=== PATIENT | male | born 1960 | race Caucasian/White ===

== ENCOUNTER 2022-05-31 14:38 | Inpatient (IN) | payer OTHER ==
[2022-05-31] MEDS ORDERED: ASPIRIN 300 MG SUPP RECTAL STA (14:43)
[2022-05-31] MEDS ORDERED: HEPARIN SODIUM 1,000 UN/ML (10ML VL) IV ONE ×2 (14:47→15:15)
--- NOTE | 2022-05-31 14:47 | ED ---
General Adult HPI - General Stated complaint: cardiac arrest Time Seen by Provider: 05/31/22 14:38 Source: patient, EMS, RN notes reviewed, old records reviewed - History of Present Illness Initial comments: This is a 61-year-old male who is brought into the emergency department by EMS. According to EMS the patient was showering and didn't feel well laid on the bed and then he stopped breathing and the can feel her heartbeat so she started CPR. EMS arrived the patient was in asystole initially they started CPR gave the patient epi patient went into V. tach at some point in time they did 2 shocks and gave 150 of amiodarone. Patient was intubated in the field. When patient arrived patient was breathing on his own and we were assisting ventilations with the back. Review of Systems ROS Statement: Those systems with pertinent positive or pertinent negative responses have been documented in the HPI. ROS Other: All systems not noted in ROS Statement are negative. General Exam - General Exam Comments Initial Comments: GENERAL: Patient is well-developed and well-nourished. Patient is not alert but isn't breathing on his own ENT: Neck is soft and supple. No significant lymphadenopathy is noted. Oropharynx is clear. Moist mucous membranes. Neck has full range of motion without eliciting any pain. EYES: The sclera were anicteric and conjunctiva were pink and moist. Extraocular movements were intact and pupils were equal round and reactive to light. Eyelids were unremarkable. PULMONARY: Unlabored respirations. Good breath sounds bilaterally. No audible rales rhonchi or wheezing was noted. CARDIOVASCULAR: There is a regular rate and rhythm without any murmurs gallops or rubs. Femoral pulses are equal bilaterally ABDOMEN: Soft and nontender with normal bowel sounds. SKIN: Skin is clear with no lesions or rashes and otherwise unremarkable. NEUROLOGIC: Patient is not alert or awake. MUSCULOSKELETAL: Patient is not moving any extremities and his in no condition to follow commands. LYMPHATICS: No significant lymphadenopathy is noted PSYCHIATRIC: Unable to assess Medical Decision Making - Medical Decision Making Chest x-ray was interpreted by me. Patient's chest x-ray shows ET tube in good placement. There are no other acute findings at this time. EKG was interpreted by me. First EKG showed sinus rhythm at [address] segment elevation in precordial leads V5 and V6 and possibly in lead 3 but there is too much noise to do fine definitively. Patient is ST segment depression in leads V1 and V2 and V3. Patient's heart rate was 90 bpm IN interval is 181 QRSs 100 QT interval 370 QTC is 426. Patient's second EKG done try to limit some of the noise and I did interpret this EKG as well. EKG shows sinus rhythm at 85 bpm IN interval 177 QRSs 101 Q-T intervals 370 QTC is 412. Patient's EKG shows ST segment elevation inferiorly and ST segment elevation in V1 [address] segment depression V1 and V2 and V3. I spoke with Dr. lowery and . she agreed to admit the patient. This was called a STEMI overhead. Spoke with Dr. Perez he wanted the patient up to the catheterization lab as soon as possible. Critical Care Time Critical Care Time: Yes Total Critical Care Time: 35 Disposition Clinical Impression: STEMI (ST elevation myocardial infarction) Disposition: ADMITTED IP TO THIS HOSP Referrals: None,Stated [Primary Care Provider] - 1-2 days Time of Disposition: 14:55
--- NOTE | 2022-05-31 15:00 | XR ---
EXAMINATION TYPE: XR chest 1V portable DATE OF EXAM: 05/31/2022 COMPARISON: NONE HISTORY: Chest pain TECHNIQUE: Single frontal view of the chest is obtained. FINDINGS: ET tube 4.3 cm above sivakumar. Coarsened interstitium. No evidence of pneumothorax. There is small bilateral pleural effusions. Underlying COPD and cardiomegaly noted. IMPRESSION: 1. ET tube in good position. Right perihilar infiltrate in the differential diagnosis. 2. Small bilateral pleural effusions and underlying COPD.
[2022-05-31] MEDS ORDERED: LIDOCAINE 1% INJ 10MG/ML (30 ML VIAL-PF) SQ ONE (15:07)
[2022-05-31] MEDS ORDERED: ASPIRIN 325 MG TAB OG-TUBE ONE (15:15)
[2022-05-31] MEDS ORDERED: ASPIRIN 325 MG TAB PO ONE (15:15)
[2022-05-31] MEDS ORDERED: TIROFIBAN 12.5MG-250ML NS 250 ML IV ONE (15:18)
[2022-05-31] MEDS ORDERED: NOREPINEPHRINE 4 MG in SODIUM CHLORIDE 0.9% 250 ML IV ONE (15:18)
[2022-05-31] MEDS ORDERED: TIROFIBAN BOLUS 12.5MG/250 ML BAG IV ONE (15:18)
[2022-05-31] MEDS ORDERED: IV FLUID CONTINUATION 1,000 ML IV ONE (15:21)
[2022-05-31] MEDS ORDERED: MIDAZOLAM 2 MG/2 ML VIAL IV ONE (15:26)
[2022-05-31] MEDS ORDERED: IOPAMIDOL-370 100ML BTL INJ ONE ×2 (15:28→15:36)
[2022-05-31] MEDS ORDERED: TICAGRELOR 90 MG TAB ONE (15:33)
[2022-05-31] MEDS ORDERED: TICAGRELOR 90 MG TAB OG-TUBE ONE (15:35)
[2022-05-31] MEDS ORDERED: fentaNYL (PF) 50 MCG/ML 2 ML AMP ONE (15:42)
[2022-05-31 15:43] LABS: Basophils # (A) 0.1 k/uL (0-0.2); Basophils % (A) 1 %; Eosinophils # (A) 0.3 k/uL (0-0.7); Eosinophils % (A) 2 %; HCT 46.6 % (39.0-53.0); HGB 15.5 gm/dL (13.0-17.5); Lymphocytes # (A) 3.8 k/uL (1.0-4.8); Lymphocytes % (A) 31 %; MCH 30.1 pg (25.0-35.0); MCHC 33.2 g/dL (31.0-37.0); MCV 90.4 fL (80.0-100.0); Mean Platelet Volume 7.8; Monocytes # (A) 0.7 k/uL (0-1.0); Monocytes % (A) 6 %; Neutrophils % (A) 58 %; Platelet Count 302 k/uL (150-450); RBC 5.15 m/uL (4.30-5.90); RDW 12.9 % (11.5-15.5); WBC 12.1 k/uL (3.8-10.6)
[2022-05-31] MEDS ORDERED: fentaNYL (PF) 50 MCG/ML 2 ML AMP IV ONE (15:44)
[2022-05-31] MEDS ORDERED: ATROPINE SULFATE 0.1 MG/ML 10ML SYRINGE IV PRN (15:45)
[2022-05-31] MEDS ORDERED: MAG HYDROX/AL HYDROX/SIMETH 30 ML CUP PO PRN (15:45)
[2022-05-31] MEDS ORDERED: RX INFO: IV CONTRAST WAS GIVEN 1 EACH MISC MISCELLANE PRN (15:45)
[2022-05-31] MEDS ORDERED: NITROGLYCERIN SL TABS 0.4 MG TAB SUBLINGUAL PRN (15:45)
[2022-05-31 15:53] LABS: Albumin 4.3 g/dL (3.5-5.0); Calcium 8.8 mg/dL (8.4-10.2); Total Protein 6.9 g/dL (6.3-8.2)
[2022-05-31 15:56] LABS: Magnesium 2.1 mg/dL (1.6-2.3)
[2022-05-31] MEDS ORDERED: TIROFIBAN 12.5MG-250ML NS 250 ML IV SCH (16:00)
[2022-05-31 16:01] LABS: Partial Thromboplastin Time 21.8 sec (22.0-30.0); Prothrombin Time 10.8 sec (9.0-12.0)
[2022-05-31] MEDS: SODIUM CHLORIDE 0.9% 1,000 ML IV SCH (16:10)
--- NOTE | 2022-05-31 16:22 | P.CRDCN ---
History of Present Illness History of present illness: - . HPI: [This is a 61-year-old patient was brought to the emergency room by EMS. History was obtained after they did the interventional procedure from the and daughter. Apparently they were moving from one house to another and he did some physical work he took a shower came out and said he didn't feel well had some chest and bilateral shoulder discomfort. Then he laid down and then started talking and stopped talking and became unresponsive started CPR was not performed in his mouth. She called 911. EMS arrived within about 10 minutes or less and patient was in V. tach and they did 2 shocks gave him 150 mg of amiodarone he was intubated and brought into the emergency room. I saw the patient in the vp lab as a prepping him. I could not find any family so I did not speak to them. However the history I obtained suggested that he was healthy does not smoke has family history of premature CAD. He has no hypertension or diabetes does not take any prescription medications. This seems to be the first episode although he had symptoms earlier he did not share with his . In the emergency room he was evaluated and sent to the cardiac vp lab. In the vp lab patient was on event his blood pressure was about 110 systolic. He was also sedated. I bent knee mediately performed the procedure. Physical examination however revealed blood pressure was about 110/70 there was no JVD S1 and S2 were heard normally but distantly lungs revealed ventilatory assisted breath sounds. Abdomen was soft lower extremity pulses are diminished. I did not perform a central nervous system examination. EKG revealed very subtle inferior ST elevation initial EKG revealed precordial ST depression in V5 and V6 had ST elevation. EKG suggested possible circumflex occlusion. This was called a STEMI and patient was brought to the Career Development Facilitator expeditiously RELEVANT PAST MEDICAL HISTORY: No significant past medical history no medications.. MEDICATIONS: No prescription medicines takes aspirin and vitamins ALLERGIES: . REVIEW OF SYSTEMS: . PHYSICIAL EXAM: . IMPRESSION: 1. Acute inferior ST elevation ND with cardiac arrest, 2 shocks and CPR. Sudden secondary to possible acute inferior ST elevation ND. 2. . 3. . 4. . 5. . RECOMMENDATIONS: Amiodarone bolus was given intravenously. We will proceed with urgent cardiac cath and PCI if indicated. Past Medical History Past Medical History: Unable to Obtain History of Any Multi-Drug Resistant Organisms: Unobtainable Past Surgical History: Unable to Obtain Past Psychological History: Unable to Obtain Smoking Status: Unknown if ever smoked Past Alcohol Use History: Unable to Obtain Past Drug Use History: Unable to Obtain Medications and Allergies Allergies Allergy/AdvReac Type Severity Reaction Status Date / Time Unable to Assess Allergy Verified 05/31/22 14:50 Physical Exam Vitals: Vital Signs Pulse Resp BP Pulse Ox FiO2 05/31/22 16:08 100 05/31/22 16:03 100 05/31/22 14:42 89 22 126/92 92 L Intake and Output 05/31/22 05/31/22 05/31/22 06:59 14:59 22:59 Intake Total 240 Balance 240 Intake: IV 240 Other: Weight 97.522 kg Results 05/31/22 15:08 05/31/22 15:08 Cardiac Enzymes 05/31/22 05/31/22 Range/Units 15:08 15:08 AST 277 H (17-59) U/L Troponin I <0.012 (0.000-0.034) ng/mL Coagulation 05/31/22 Range/Units 15:08 PT 10.8 (9.0-12.0) sec APTT 21.8 L (22.0-30.0) sec CBC 05/31/22 Range/Units 15:08 WBC 12.1 H (3.8-10.6) k/uL RBC 5.15 (4.30-5.90) m/uL Hgb 15.5 (13.0-17.5) gm/dL Hct 46.6 (39.0-53.0) % Plt Count 302 (150-450) k/uL Comprehensive Metabolic Panel 05/31/22 Range/Units 15:08 Sodium 137 (137-145) mmol/L Potassium 4.0 (3.5-5.1) mmol/L Chloride 103 (98-107) mmol/L Carbon Dioxide 19 L (22-30) mmol/L BUN 21 H (9-20) mg/dL Creatinine 1.18 (0.66-1.25) mg/dL Glucose 212 H (74-99) mg/dL Calcium 8.8 (8.4-10.2) mg/dL AST 277 H (17-59) U/L ALT 177 H (4-49) U/L Alkaline Phosphatase 71 (38-126) U/L Total Protein 6.9 (6.3-8.2) g/dL Albumin 4.3 (3.5-5.0) g/dL Current Medications Generic Name Dose Route Start Last Admin Trade Name Freq PRN Reason Stop Dose Admin Al Hydroxide/Mg Hydroxide 30 ml 05/31/22 15:45 Mag Hydrox/Al Hydrox/Simeth 30 Ml Cup PO Q4HR PRN Heartburn Aspirin 81 mg 06/01/22 09:00 Aspirin 81 Mg PO DAILY SAE Atorvastatin Calcium 80 mg 05/31/22 21:00 Atorvastatin 80 Mg Tab PO HS SAE Atropine Sulfate 0.5 mg 05/31/22 15:45 Atropine Sulfate 0.1 Mg/Ml 10ml Syringe IV ONCE PRN Symptomatic Bradycardia Chlorhexidine Gluconate 15 ml 05/31/22 21:00 Chlorhexidine Gluconate 15 Ml Cup MUCOUS MEM BID SAE Sodium Chloride 1,000 ml/ IV 1,000 mls @ 100 mls/hr 05/31/22 15:45 Solution IV 06/01/22 09:46 .Q10H SAE Tirofiban/Sodium Chloride 250 mls @ 17.554 mls/hr 05/31/22 16:00 Aggrastat 12.5 Mg/250 Ml Ns IV 06/01/22 04:00 .[id number] SAE 0.15 MCG/KG/MIN Norepinephrine Bitartrate 4 mg 254 mls @ 11.147 mls/hr 05/31/22 16:00 / Sodium Chloride IV .[id number] SAE Protocol 0.03 MCG/KG/MIN Sodium Chloride 1,000 mls @ 50 mls/hr 06/01/22 04:00 Saline 0.9% IV .Q20H SAE Sodium Chloride 1,000 mls @ 100 mls/hr 05/31/22 16:00 Saline 0.9% IV 06/01/22 04:00 .Q10H SAE Propofol 1,000 mg/ IV Solution 100 mls @ 8.777 mls/hr 05/31/22 16:15 IV .[id number] SAE Protocol 15 MCG/KG/MIN Miscellaneous Information 1 each 05/31/22 15:45 Rx Info: Iv Contrast Was Given 1 Each Misc MISCELLANE 06/02/22 15:45 DAILY PRN Per Protocol Nitroglycerin 0.4 mg 05/31/22 15:45 Nitroglycerin Sl Tabs 0.4 Mg Tab SUBLINGUAL Q5M PRN Chest Pain Ticagrelor 90 mg 05/31/22 21:00 Ticagrelor 90 Mg Tab PO BID SAE Protocol Intake and Output 05/31/22 05/31/22 05/31/22 06:59 14:59 22:59 Intake Total 240 Balance 240 Intake: IV 240 Other: Weight 97.522 kg Patient Weight 06/01/22 06:59 Weight 97.522 kg 05/31/22 15:08 05/31/22 15:08
[2022-05-31] MEDS: NOREPINEPHRINE 4 MG in SODIUM CHLORIDE 0.9% 250 ML IV SCH (16:30)
[2022-05-31 16:36] LABS: Glucose,Whole Blood 175 mg/dL (70-110)
--- NOTE | 2022-05-31 16:40 | P.CARDCATH ---
Description of Procedure: #1 left heart catheterization and coronary angiography. #2 PTCA and stenting of mid circumflex with a drug-eluting stent in the setting of acute inferior ST elevation AK Moderate conscious sedation time was 35 minutes. Patient was already sedated. Additional fentanyl was given. Oxygen saturation hemodynamics and EKG were monitored closely. This patient was brought by the EMS following what appears to be a cardiac arrest at home CPR by and downtime of about 10-12 minutes. Patient was intubated in the field and brought in EKG suggested inferior ST elevation AK with some precordial ST depression suggestive of circumflex lesion. He was brought to the cardiac Housekeeper Nanny expeditiously. I started the procedure as soon as possible from right femoral approach I did not communicate with any family members since and none were available Procedure Details: . Patient was brought to the field laborer. Patient was prepped and draped in the usual manner. Under strict aseptic precautions and local anesthesia a 6 Italian introducer was placed in the right femoral artery. Using a JL 4.0 guide catheter I started off and noted that there was a total circumflex occlusion I performed intervention of the circumflex and then used a right Blanche diagnostic catheter and did selective coronary angiography of the right coronary artery. I used the same right catheter to check LV pressures but did not do an LV gram. Following the procedure the sheath was sutured and patient was sent to the ICU. Findings: Hemodynamics: The left ventricle end-diastolic pressure was 24 mmHg without any gradient across aortic valve. Left Main: Short patent disease-free vessel that bifurcates into LAD and nondominant circumflex LAD: This is a fair distribution vessel and gives off a large diagonal branch very proximally that again divides into 2 branches superior branch has a 50-60% lesion inferior branch has about a 40% lesion. The LAD itself is free of significant disease and runs all the way to the apex of her giving off another diagonal branch in the midportion. After the diagonal branch the LAD is somewhat smaller in caliber. There is a good septal branch also that comes off. CIRC: Nondominant vessel gives off 2 tiny obtuse minor branches and then a left atrial circumflex branch then the vessel is then totally occluded without antegrade flow there seems to be moderate amount of thrombus RCA: Dominant vessel large in caliber and distribution minor irregularities study bifurcates into a large PDA and PLV, the PLV in the midportion has about a 40% narrowing PLV is a large distribution vessel. PDA has minor irregularities no significant disease LV: LV gram was not performed Closure Device: The sheath was sutured no closure device Complications: No complication PCI procedure details: I used a left standard Blanche guide catheter of 6-Italian caliber and run through wire. I opened the totally occluded vessel with a 2.5 caliber 15 mm trek balloon. I then deployed a 2.75 caliber Xience stent of 15 mm length. Excellent angiographic result was achieved. Patient received 180 mg of we will into through the orogastric tube. He also received intravenous heparin a total of 6500 units and also Aggrastat bolus and drip. ACT was about 260. Excellent angiographic result without complication was achieved Estimated Blood Loss: Minimal Impression: Right dominant system no significant disease in the RCA. Mild to moderate disease in the LAD. Total occlusion of circumflex. Elevated filling pressures no gradient Pre Procedure Diagnosis: Acute ST elevation AK involving inferior wall with possible circumflex occlusion Final Post Procedure Diagnosis: Acute inferior ST elevation AK with circumflex 100% occlusion Recommendation: Urgent PCI of circumflex that was performed expeditiously with reperfusion achieved in 40 minutes Complications: None; patient tolerated the procedure well. Disposition: ICU on a norepinephrine drip and on a ventilator. Discussed with Dr. Monroe hearing specialist and also talk to the ICU nurse and gave the report. Condition: Unstable and critical going to ICU on norepinephrine drip and on a ventilator Discharge Disposition: Patient is critical he is going to the ICU
[2022-05-31 16:45] LABS: ABG Base Excess -5.9 mmol/L; ABG HCO3 20 mmol/L (21-25); ABG Oxygen Saturation 99.2 % (94-97); ABG PCO2 40 mmHg (35-45); ABG PH 7.31 (7.35-7.45); ABG PO2 160 mmHg (83-108); ABG TCO2 22 mmol/L (19-24); Allen Test Performed? Yes
[2022-05-31] MEDS: SODIUM CHLORIDE 0.9% 1,000 ML in EMPTY BAG 1 BAG IV SCH ×2 (16:59→18:34)
[2022-05-31 17:22] LABS: Appearance,Urine Clear (Clear); Bilirubin,Urine Negative (Negative); Blood,Urine Small (Negative); Color,Urine Yellow; Glucose,Urine (UA) 1+ (Negative); Ketones,Urine 1+ (Negative); Leukocyte Esterase,Urine Negative (Negative); Mucus,Urine Rare /hpf; Nitrite,Urine Negative (Negative); PH, Urine 5.5 (5.0-8.0); Protein,Urine 1+ (Negative); RBC,Urine 14 /hpf (0-5); Urobilinogen,Urine <2.0 mg/dL (<2.0)
[2022-05-31 17:23] LABS: Amphetamine Screen,Urine Not Detected (NotDetected); Barbiturate Screen,Urine Not Detected (NotDetected); Benzodiazepines Screen,Urine Not Detected (NotDetected); Cocaine Screen,Urine Not Detected (NotDetected); Methadone Screen, Urine Not Detected (NotDetected); Opiate Screen,Urine Not Detected (NotDetected); Oxycodone Screen, Urine Not Detected (NotDetected); Phencyclidine Screen,Urine Not Detected (NotDetected); Tricyclic Antidepressant,Urine Not Detected (NotDetected); Urn Cannabinoid Scrn Not Detected (NotDetected)
[2022-05-31 17:24] LABS: Specific Gravity,Urine >1.050 (1.001-1.035)
--- NOTE | 2022-05-31 17:42 | XR ---
EXAMINATION TYPE: XR cervical spine 1V DATE OF EXAM: 05/31/2022 5:32 PM INDICATION: Patient age:Male; 61 years old; Reason for study: r/o cervical fracture; COMPARISON: None TECHNIQUE: The cervical spine was imaged in lateral view only. FINDINGS: Limited evaluation secondary to overlapping soft tissues. The osseous structures show normal alignment without evidence of an acute fracture. There are osteoph ytes noted throughout the cervical spine on the anterior aspects of the vertebral bodies. The visuali zed intervertebral disk spaces and straight mild disc space loss. Endotracheal nasogastric tubes are present. IMPRESSION: 1. Limited evaluation without obvious fracture or dislocation. Consider CT for better evaluation. 2. Mild degenerative disc disease changes of the cervical spine.
[2022-05-31 17:47] LABS: Glucose,Whole Blood 167 mg/dL (70-110)
--- NOTE | 2022-05-31 18:04 | CA ---
Transthoracic Echo Report Name: Ted Nathan Age: 61 Gender: M : 1960 Exam Date: 05/31/2022 15:41 Exam Location: [facility] Ht (in): 72 Wt (lb): 215 Ordering Physician: Merissa Perez MD ([id number]) Attending/Referring Phys: Systems Security Analyst Genevieve Kuhn RDCS Procedure CPT: Indications: stemi Cardiac Hx: Technical Quality: Fair Contrast 1: Total Dose (mL): 87 Contrast 2: Total Dose (mL): MEASUREMENTS (Male / Female) Normal Values 2D ECHO LV Diastolic Diameter PLAX 4.6 cm 4.2 - 5.9 / 3.9 - 5.3 cm LV Systolic Diameter PLAX 3.3 cm IVS Diastolic Thickness 1.4 cm 0.6 - 1.0 / 0.6 - 0.9 cm LVPW Diastolic Thickness 1.3 cm 0.6 - 1.0 / 0.6 - 0.9 cm LV Relative Wall Thickness 0.6 RV Internal Dim ED PLAX 2.8 cm LA Volume 80.2 cm??? 18 - 58 / 22 - 52 cm??? M-MODE Aortic Root Diameter MM 3.3 cm LA Systolic Diameter MM 4.0 cm LA Ao Ratio MM 1.2 AV Cusp Separation MM 2.2 cm DOPPLER AV Peak Velocity 113.7 cm/s AV Peak Gradient 5.2 mmHg LVOT Peak Velocity 91.3 cm/s LVOT Peak Gradient 3.3 mmHg MV Area PHT 4.9 cm??? Mitral E Point Velocity 99.2 cm/s Mitral A Point Velocity 59.7 cm/s Mitral E to A Ratio 1.7 MV Deceleration Time 155.3 ms MV E' Velocity 9.3 cm/s Mitral E to MV E' Ratio 10.7 TR Peak Velocity 297.7 cm/s TR Peak Gradient 35.4 mmHg Right Ventricular Systolic Press 40.3 mmHg FINDINGS Left Ventricle Moderately increased left ventricular wall thickness. No obvious regional wall motion abnormalities. Left ventricular ejection fraction is estimated at 50-55 %. Right Ventricle Normal right ventricular size and function. Mild pulmonary hypertension. Right Atrium Normal right atrial size. Left Atrium Severely increased left atrial volume. Mitral Valve Structurally normal mitral valve. Mild mitral regurgitation. Aortic Valve No aortic valve stenosis or regurgitation. Tricuspid Valve Mild tricuspid regurgitation.structurally normal tricuspid valve. Pulmonic Valve Structurally normal pulmonic valve. Pericardium No pericardial effusion. Aorta Normal size aortic root and proximal ascending aorta. CONCLUSIONS 1. Normal left ventricle size and borderline systolic function with mild lateral wall hypokinesis 2. Mild mitral and tricuspid regurgitation Previewed by: Dr. Sunday Shook MD (Electronically Signed) Final Date: 31 May 2022 18:02
[2022-05-31] MEDS ORDERED: DEXTROSE 50% SYRINGE 50 ML IVP PRN ×2 (18:12)
[2022-05-31] MEDS: INSULIN ASPART (NovoLOG) 100 UNIT/ML VIAL SQ SCH (19:32)
[2022-05-31] MEDS: CHLORHEXIDINE GLUCONATE 15 ML CUP MUCOUS MEM SCH (22:12)
[2022-05-31] MEDS: TICAGRELOR 90 MG TAB PO SCH (22:12)
[2022-05-31] MEDS: ATORVASTATIN 80 MG TAB PO SCH (22:12)
[2022-06-01 00:10] LABS: Glucose,Whole Blood 110 mg/dL (70-110)
[2022-06-01] MEDS: INSULIN ASPART (NovoLOG) 100 UNIT/ML VIAL SQ SCH ×5 (00:11→23:49)
[2022-06-01 00:42] LABS: Magnesium 2.1 mg/dL (1.6-2.3); Potassium 3.7 mmol/L (3.5-5.1)
[2022-06-01] MEDS ORDERED: POTASSIUM BICARBONATE/CIT AC 20 MEQ TABLET.EFF NG-TUBE SCH (01:00)
[2022-06-01] MEDS: SODIUM CHLORIDE 0.9% 1,000 ML IV SCH (03:26)
[2022-06-01] MEDS ORDERED: SODIUM CHLORIDE 0.9% 1,000 ML IV SCH (04:00)
[2022-06-01 05:11] LABS: Basophils % (A) 0 %; Eosinophils # (A) 0.1 k/uL (0-0.7); Eosinophils % (A) 0 %; HCT 38.5 % (39.0-53.0); HGB 13.4 gm/dL (13.0-17.5); Lymphocytes # (A) 1.7 k/uL (1.0-4.8); Lymphocytes % (A) 15 %; MCH 30.6 pg (25.0-35.0); MCHC 34.8 g/dL (31.0-37.0); MCV 87.7 fL (80.0-100.0); Mean Platelet Volume 6.9; Monocytes # (A) 0.6 k/uL (0-1.0); Monocytes % (A) 6 %; Neutrophils # (A) 8.8 k/uL (1.3-7.7); Neutrophils % (A) 78 %; Platelet Count 283 k/uL (150-450); RBC 4.39 m/uL (4.30-5.90); RDW 12.9 % (11.5-15.5); WBC 11.4 k/uL (3.8-10.6)
[2022-06-01 05:26] LABS: ALT 151 U/L (4-49); AST 230 U/L (17-59); African American GFR (CKD) >90 (>60 ml/min/1.73 sqM); Albumin 3.2 g/dL (3.5-5.0); Alkaline Phosphatase 58 U/L (38-126); Anion Gap 6 mmol/L; Blood Urea Nitrogen 18 mg/dL (9-20); Calcium 7.6 mg/dL (8.4-10.2); Carbon Dioxide 23 mmol/L (22-30); Chloride 109 mmol/L (98-107); Glucose 108 mg/dL (74-99); Magnesium 2.2 mg/dL (1.6-2.3); Non-African American GFR(CKD) >90 (>60 ml/min/1.73 sqM); Potassium 3.5 mmol/L (3.5-5.1); Sodium 138 mmol/L (137-145); Total Bilirubin 0.6 mg/dL (0.2-1.3); Total Protein 5.4 g/dL (6.3-8.2)
[2022-06-01 05:38] LABS: ABG HCO3 24 mmol/L (21-25); ABG Oxygen Saturation 99.5 % (94-97); ABG PCO2 35 mmHg (35-45); ABG PH 7.45 (7.35-7.45); ABG PO2 128 mmHg (83-108); ABG TCO2 25 mmol/L (19-24); Allen Test Performed? Yes
[2022-06-01 06:07] LABS: Glucose,Whole Blood 104 mg/dL (70-110)
--- NOTE | 2022-06-01 07:06 | XR ---
EXAMINATION TYPE: XR chest 1V portable DATE OF EXAM: 06/01/2022 5:27 AM COMPARISON: Chest radiograph from one day prior. TECHNIQUE: XR chest 1V portable Portable AP radiograph of the chest. CLINICAL INDICATION:Male, 61 years old with history of Tube placement; FINDINGS: Lungs/Pleura: There is no evidence of focal consolidation, or pneumothorax. Blunting of the costophr enic angle on the left. Scattered airspace opacities not significantly changed from prior. Pulmonary vascularity: Unremarkable. Heart/mediastinum: Cardiomediastinal silhouette is unremarkable. Musculoskeletal: No acute osseous pathology. Other findings: None Lines/Tubes: Endotracheal tube with distal tip 5.4 cm above the sivakumar Nasogastric tube with its distal tip and side-port projecting under the diaphragm. IMPRESSION: 1. Similar multifocal airspace opacities. 2. Stable support lines and tubes.
[2022-06-01] MEDS: CHLORHEXIDINE GLUCONATE 15 ML CUP MUCOUS MEM SCH (09:00)
[2022-06-01] MEDS ORDERED: ATROPINE SULFATE 0.1 MG/ML 10ML SYRINGE ONE (09:11)
[2022-06-01] MEDS: HEPARIN SODIUM,PORCINE/PF 5,000 UNIT/0.5 ML SYRINGE SQ SCH ×2 (10:10→20:46)
[2022-06-01] MEDS: TICAGRELOR 90 MG TAB PO SCH ×2 (10:10→20:46)
[2022-06-01] MEDS: POTASSIUM CHLORIDE 10 MEQ in WATER FOR INJECTION 1 100ML.BAG IVPB SCH ×4 (10:26→13:40)
[2022-06-01] MEDS: ASPIRIN 81 MG PO SCH (10:37)
--- NOTE | 2022-06-01 11:15 | P.CNPUL ---
History of Present Illness Consult date: 06/01/22 Requesting physician: Bassem Owen Reason for consult: other (Mechanical ventilator/critical care management) Chief complaint: Cardiac arrest History of present illness: This is a 61-year-old male patient with no significant past medical history. No home prescribed medications. Yesterday the patient was up in the shower was not feeling well and laid down on the bed and he stopped breathing and his cannot feel heartbeat she did start CPR. When EMS arrived the patient was found to be in asystole they continued CPR gave epinephrine and the patient went into V. tach and they did 2 defibrillations and started 150 of amiodarone. He was intubated in the field. Subsequently brought here to the emergency room. EKG showed evidence of subendocardial injury. Troponin 4.6. Peaked at 27.3. Acute ST segment elevation myocardial infarction. He was taken to the cardiac Package Line Operator and had undergone stenting of the 100% occluded mid circumflex artery. He remained intubated on mechanical ventilator. He is seen this morning in the ICU in consultation. Current vent settings are scarred control mode at a rate of 20, tidal out of 500, FiO2 30% and a PEEP of 5. Morning blood gases revealed a PaO2 of 128, pCO2 35, pH 7.45 on 40% FiO2. He is currently sedated on propofol at 45 mg/kg per minute. He initially required norepinephrine that has since been weaned off. He has normal saline at 50 MLS per hour. Chest x-ray reveals no evidence of focal consolidation or pneumothorax. There is some blunting of the costophrenic angle on the left. Scattered airspace opacities. Sputum c ulture pending. He is continued on cefazolin. White count 11.4. Hemoglobin 13.4. Sodium 138. Potassium 3.5. Chloride 109. Bicarb 23. BUN 18. Creatinine 0.87. Glucose 108. AST 230. ALT 151. Urine drug screen positive for methamphetamines. Echocardiogram did reveal preserved left ventricular systolic function with ejection fraction 50-55%. No significant valvular abnormalities. Review of Systems ROS unobtainable: due to endotracheal tube Past Medical History Past Medical History: Unable to Obtain History of Any Multi-Drug Resistant Organisms: Unobtainable Past Surgical History: Unable to Obtain Past Anesthesia/Blood Transfusion Reactions: No Reported Reaction Past Psychological History: Unable to Obtain Smoking Status: Unknown if ever smoked Past Alcohol Use History: Unable to Obtain Past Drug Use History: Unable to Obtain - Past Family History Mother Family Medical History: Cancer, Myocardial Infarction (CT) Additional Family Medical History / Comment(s): bladder and bowel cancer, mi age mid 60's Father Family Medical History: Coronary Artery Disease (CAD) Additional Family Medical History / Comment(s): age early to mid 60's father had cabg Brother(s) Family Medical History: Dementia Additional Family Medical History / Comment(s): from etoh abuse and early onset dementia Medications and Allergies Home Medications Medication Instructions Recorded Confirmed Type Aspirin EC [Ecotrin Low Dose] 81 mg PO DAILY 05/31/22 05/31/22 History Multivit-Min/FA/Lycopen/Lutein 1 tab PO DAILY 05/31/22 05/31/22 History [Centrum Silver Tablet] Vitamin B Complex 1 cap PO DAILY 05/31/22 05/31/22 History Vitamin C(Unknown Dose) 1 tab PO DAILY 05/31/22 05/31/22 History Vitamin D3(Unknown Dose) 1 tab PO DAILY 05/31/22 05/31/22 History Allergies Allergy/AdvReac Type Severity Reaction Status Date / Time No Known Allergies Allergy Verified 05/31/22 17:56 Physical Exam Vitals: Vital Signs Temp Pulse Resp BP Pulse Ox FiO2 06/01/22 10:38 30 06/01/22 10:00 75 20 99/56 95 30 06/01/22 09:55 74 20 99/63 95 06/01/22 09:50 76 20 100/62 95 06/01/22 09:45 77 20 104/64 95 06/01/22 09:40 79 20 103/64 95 06/01/22 09:35 79 26 H 106/66 96 06/01/22 09:30 78 20 97/66 96 06/01/22 09:25 85 17 94/57 98 06/01/22 09:00 80 20 101/58 96 06/01/22 08:50 82 20 101/58 96 06/01/22 08:45 85 21 101/58 96 06/01/22 08:40 81 20 101/58 97 06/01/22 08:35 89 24 101/58 96 06/01/22 08:30 81 10 L 101/58 95 06/01/22 08:25 85 20 101/58 95 06/01/22 08:20 85 20 101/58 94 L 06/01/22 08:00 98.7 F 88 20 110/56 95 30 06/01/22 07:30 82 20 110/56 95 06/01/22 07:14 30 06/01/22 07:00 70 20 109/60 95 06/01/22 06:00 82 20 97/53 96 06/01/22 05:00 75 20 97 06/01/22 04:00 97.6 F 83 20 98/55 97 40 06/01/22 03:46 40 06/01/22 03:25 40 06/01/22 03:00 75 16 93/49 96 06/01/22 02:51 40 06/01/22 02:00 77 20 96/53 97 06/01/22 01:00 79 20 98/55 97 06/01/22 00:00 98.4 F 85 20 84/52 98 50 05/31/22 23:55 50 05/31/22 23:09 60 05/31/22 23:00 82 20 122/68 97 05/31/22 22:00 89 8 L 94/56 98 05/31/22 21:00 81 20 97/59 99 05/31/22 20:09 60 05/31/22 20:00 98.4 F 84 20 119/76 100 70 05/31/22 19:31 70 05/31/22 19:00 89 20 100 70 05/31/22 18:30 86 20 100 05/31/22 18:15 89 22 128/79 100 05/31/22 18:00 92 20 100 70 05/31/22 17:46 70 05/31/22 17:45 92 21 100 05/31/22 17:30 92 20 98 05/31/22 17:15 84 20 93/64 97 05/31/22 17:00 80 20 103/64 99 05/31/22 16:55 80 20 103/64 99 05/31/22 16:50 82 18 98 05/31/22 16:45 80 20 103/64 98 05/31/22 16:40 86 20 103/64 90 L 05/31/22 16:35 97.5 F L 101 H 18 103/64 98 100 05/31/22 16:30 78 20 103/64 98 70 05/31/22 16:20 71 20 98 05/31/22 16:15 100 05/31/22 16:10 97.5 F L 80 20 111/78 98 05/31/22 16:08 100 05/31/22 16:03 100 05/31/22 15:10 100 05/31/22 15:05 97.5 F L 05/31/22 15:00 100 05/31/22 14:42 89 22 126/92 92 L Intake and Output 05/31/22 06/01/22 06/01/22 22:59 06:59 14:59 Intake Total 954.036 903.000 639.577 Output Total 880 875 190 Balance 74.036 28.000 449.577 Intake: IV 860 700 450 Invasive Line 1 10 Invasive Line 2 10 Potassium Chloride 10 meq 200 In Water For Injection 1 100ml.bag @ 100 mls/hr IVPB Q1HR SAE Rx#: [id number] Sodium Chloride 0.9% 1, 600 650 50 000 ml @ 100 mls/hr IV . Q10H SAE Rx#:[id number] ceFAZolin 1,000 mg In 50 150 Sodium Chloride 0.9% 50 ml @ 100 mls/hr IVPB Q8HR SAE Rx#:[id number] cefazolin 50 Intake, IV Titration 94.036 203.000 129.577 Amount Norepinephrine 4 mg In 6.657 25.762 84.961 Sodium Chloride 0.9% 250 ml @ 0.03 MCG/KG/MIN 11. 147 mls/hr IV .[id number] SAE Rx#:[id number] propofoL 1,000 mg In 87.379 177.238 44.616 Empty Bag 1 bag @ 15 MCG/ KG/MIN 8.777 mls/hr IV . [id number] SAE Rx#:[id number] Other 60 Output: Gastric Drainage 50 500 Urine 830 375 190 Other: Voiding Method Indwelling Catheter Indwelling Catheter Indwelling Catheter Weight 97.522 kg 97.7 kg 97.7 kg ABP, PAP, CO, CI - Last 8 Hours Arterial Blood Pressure 96/45 Arterial Blood Pressure 105/50 Arterial Blood Pressure 110/54 Arterial Blood Pressure 109/54 Arterial Blood Pressure 112/57 Arterial Blood Pressure 94/48 Arterial Blood Pressure 95/47 Arterial Blood Pressure 93/47 Arterial Blood Pressure 101/49 Arterial Blood Pressure 98/46 Arterial Blood Pressure 103/52 Arterial Blood Pressure 99/42 Arterial Blood Pressure 103/49 Arterial Blood Pressure 93/43 Arterial Blood Pressure 106/52 GENERAL EXAM: Intubated, sedated 67-year-old male, on the mechanical ventilator, comfortable in no apparent distress. HEAD: Normocephalic. EYES: Normal reaction of pupils, equal size. NOSE: Clear with pink turbinates. THROAT: Oral endotracheal and gastric tube secured in place. No erythema or exudates. NECK: No masses, no JVD. CHEST: No chest wall deformity. LUNGS: Equal air entry with no crackles, wheeze, rhonchi or dullness. CVS: S1 and S2 normal with no audible murmur, regular rhythm. ABDOMEN: No hepatosplenomegaly, normal bowel sounds, no guarding or rigidity. SPINE: No scoliosis or deformity SKIN: No rashes CENTRAL NERVOUS SYSTEM: Sedated, tone is normal in all 4 extremities. EXTREMITIES: There is no peripheral edema. No clubbing, no cyanosis. Peripheral pulses are intact. Results - Laboratory Findings CBC and BMP: 06/01/22 04:30 06/01/22 04:30 ABG ABG pH 7.45 (7.35-7.45) 06/01/22 05:35 ABG pCO2 35 mmHg (35-45) 06/01/22 05:35 ABG pO2 128 mmHg (83-108) H 06/01/22 05:35 ABG O2 Saturation 99.5 % (94-97) H 06/01/22 05:35 PT/INR, D-dimer PT 10.8 sec (9.0-12.0) 05/31/22 15:08 INR 1.0 (<1.2) 05/31/22 15:08 Abnormal lab findings: Abnormal Labs 05/31/22 05/31/22 05/31/22 15:08 15:08 15:08 WBC 12.1 H Hct Neutrophils # APTT 21.8 L ABG pH ABG pO2 ABG HCO3 ABG Total CO2 ABG O2 Saturation Chloride Carbon Dioxide 19 L BUN 21 H Glucose 212 H POC Glucose (mg/dL) Calcium AST 277 H ALT 177 H Troponin I Total Protein Albumin Ur Specific [place] Urine Protein Urine Glucose (UA) Urine Ketones Urine Blood Urine RBC Urine Mucus U Methamphetamines Scrn 05/31/22 05/31/22 05/31/22 16:35 16:42 16:53 WBC Hct Neutrophils # APTT ABG pH 7.31 L ABG pO2 160 H ABG HCO3 20 L ABG Total CO2 ABG O2 Saturation 99.2 H Chloride Carbon Dioxide BUN Glucose POC Glucose (mg/dL) 175 H Calcium AST ALT Troponin I Total Protein Albumin Ur Specific [place] Urine Protein Urine Glucose (UA) Urine Ketones Urine Blood Urine RBC Urine Mucus U Methamphetamines Scrn Detected H 05/31/22 05/31/22 05/31/22 16:56 17:45 18:18 WBC Hct Neutrophils # APTT ABG pH ABG pO2 ABG HCO3 ABG Total CO2 ABG O2 Saturation Chloride Carbon Dioxide BUN Glucose POC Glucose (mg/dL) 167 H Calcium AST ALT Troponin I 4.600 H* Total Protein Albumin Ur Specific [place] >1.050 H Urine Protein 1+ H Urine Glucose (UA) 1+ H Urine Ketones 1+ H Urine Blood Small H Urine RBC 14 H Urine Mucus Rare H U Methamphetamines Scrn 06/01/22 06/01/22 06/01/22 04:30 04:30 04:30 WBC 11.4 H Hct 38.5 L Neutrophils # 8.8 H APTT ABG pH ABG pO2 ABG HCO3 ABG Total CO2 ABG O2 Saturation Chloride 109 H Carbon Dioxide BUN Glucose 108 H POC Glucose (mg/dL) Calcium 7.6 L AST 230 H ALT 151 H Troponin I 27.300 H* Total Protein 5.4 L Albumin 3.2 L Ur Specific [place] Urine Protein Urine Glucose (UA) Urine Ketones Urine Blood Urine RBC Urine Mucus U Methamphetamines Scrn 06/01/22 05:35 WBC Hct Neutrophils # APTT ABG pH ABG pO2 128 H ABG HCO3 ABG Total CO2 25 H ABG O2 Saturation 99.5 H Chloride Carbon Dioxide BUN Glucose POC Glucose (mg/dL) Calcium AST ALT Troponin I Total Protein Albumin Ur Specific [place] Urine Protein Urine Glucose (UA) Urine Ketones Urine Blood Urine RBC Urine Mucus U Methamphetamines Scrn - Diagnostic Findings Chest x-ray: image reviewed Assessment and Plan Assessment: Acute cardiopulmonary arrest and received CPR, initially in asystole, some ventricular tachycardia, requiring defibrillation 2, intubated in the field Acute ST segment elevation myocardial infarction with 100% occluded left circumflex artery, status post stenting on 05/31/2022 Urine drug screen positive for methamphetamines Plan: The patient was seen and evaluated Chest x-ray, ABGs, echocardiogram, labs and medications reviewed Plan for daily interruption of sedation Evaluation of neuro status Plan for spontaneous breathing trial if tolerated Sputum culture pending. Currently on cefazolin Heparin for DVT prophylaxis Continued on statins, aspirin, Brilinta We will continue to follow and make further recommendations based on his clinica l status I have personally seen and examined the patient, performed the documentation and the assessment and plan as written. Number of minutes spent on the visit: 20.
[2022-06-01 12:20] LABS: Glucose,Whole Blood 113 mg/dL (70-110)
[2022-06-01] MEDS: PANTOPRAZOLE 40 MG/10 ML VIAL IVP SCH (12:30)
--- NOTE | 2022-06-01 12:44 | P.HPIM ---
History of Present Illness 61-year-old male had a cardiac arrest which followed chest pain patient was resuscitated what appears to be around 5-7 minutes patient received 2 shocks. Patient was complaining of chest pain followed by unresponsiveness 911 was josy led and patient was associated for 10 minutes patient was found to be in V. tach 2 shocks were given with the 150 mg of amiodarone patient was subsequently brought to ER intubated underwent cardiac catheterization for acute ST elevation myocardial infarction and found to have 100% occlusion of mid circumflex which was stented patient peak troponin was around 27 patient is presently intubated on pressor support can use to be on propofol patient is on 30% FiO2 assist control/volume-controlled ventilation PEEp of 5 patient is a bleeding or the ventilator patient does have brainstem reflexes. Chest x-ray did not show any air space opacities or pulmonary edema or pleural effusions. REVIEW OF SYSTEMS: Unable to obtain due to his clinical condition PHYSICAL EXAMINATION: GENERAL: Intubated sedated HEENT: Pupils are round and equally reacting to light. EOMI. No scleral icterus. No conjunctival pallor. Normocephalic, atraumatic. No pharyngeal erythema. No thyromegaly. CARDIOVASCULAR: S1 and S2 present. No murmurs, rubs, or gallops. PULMONARY: Chest is clear to auscultation, no wheezing or crackles. ABDOMEN: Soft, nontender, nondistended, normoactive bowel sounds. No palpable organomegaly. MUSCULOSKELETAL: No joint swelling or deformity. EXTREMITIES: No cyanosis, clubbing, or pedal edema. NEUROLOGICAL: Sedated with intact brainstem reflexes cough reflex and corneal reflex SKIN: No rashes. Assessment and plan -Acute ST elevation microinfarction: Patient is status post cardiac catheterization and stenting, patient will be continued on dual antiplatelet therapy echocardiogram will be obtained, continue with statins beta eliz -Cardio pulmonary/ventricular tachycardia secondary to myocardial infarction Acute respiratory failure secondary to cardiology pulmonary arrest, propofol will be weaned later today followed by spontaneous breathing trial -Positive drug screen for methamphetamines DVT prophylaxis: Heparin Past Medical History Past Medical History: Unable to Obtain History of Any Multi-Drug Resistant Organisms: Unobtainable Past Surgical History: Unable to Obtain Past Anesthesia/Blood Transfusion Reactions: No Reported Reaction Past Psychological History: Unable to Obtain Smoking Status: Unknown if ever smoked Past Alcohol Use History: Unable to Obtain Past Drug Use History: Unable to Obtain - Past Family History Mother Family Medical History: Cancer, Myocardial Infarction ([place]) Additional Family Medical History / Comment(s): bladder and bowel cancer, mi age mid 60's Father Family Medical History: Coronary Artery Disease (CAD) Additional Family Medical History / Comment(s): age early to mid 60's father had cabg Brother(s) Family Medical History: Dementia Additional Family Medical History / Comment(s): from etoh abuse and early onset dementia Medications and Allergies Home Medications Medication Instructions Recorded Confirmed Type Aspirin EC [Ecotrin Low Dose] 81 mg PO DAILY 05/31/22 05/31/22 History Multivit-Min/FA/Lycopen/Lutein 1 tab PO DAILY 05/31/22 05/31/22 History [Centrum Silver Tablet] Vitamin B Complex 1 cap PO DAILY 05/31/22 05/31/22 History Vitamin C(Unknown Dose) 1 tab PO DAILY 05/31/22 05/31/22 History Vitamin D3(Unknown Dose) 1 tab PO DAILY 05/31/22 05/31/22 History Allergies Allergy/AdvReac Type Severity Reaction Status Date / Time No Known Allergies Allergy Verified 05/31/22 17:56 Physical Exam Vitals: Vital Signs Temp Pulse Resp BP Pulse Ox FiO2 06/01/22 11:00 78 17 103/64 97 06/01/22 10:38 30 06/01/22 10:30 70 20 96/63 96 06/01/22 10:00 75 20 99/56 95 30 06/01/22 09:55 74 20 99/63 95 06/01/22 09:50 76 20 100/62 95 06/01/22 09:45 77 20 104/64 95 06/01/22 09:40 79 20 103/64 95 06/01/22 09:35 79 26 H 106/66 96 06/01/22 09:30 78 20 97/66 96 06/01/22 09:25 85 17 94/57 98 06/01/22 09:00 80 20 101/58 96 06/01/22 08:50 82 20 101/58 96 06/01/22 08:45 85 21 101/58 96 06/01/22 08:40 81 20 101/58 97 06/01/22 08:35 89 24 101/58 96 06/01/22 08:30 81 10 L 101/58 95 06/01/22 08:25 85 20 101/58 95 06/01/22 08:20 85 20 101/58 94 L 06/01/22 08:00 98.7 F 88 20 110/56 95 30 06/01/22 07:30 82 20 110/56 95 06/01/22 07:14 30 06/01/22 07:00 70 20 109/60 95 06/01/22 06:00 82 20 97/53 96 06/01/22 05:00 75 20 97 06/01/22 04:00 97.6 F 83 20 98/55 97 40 06/01/22 03:46 40 06/01/22 03:25 40 06/01/22 03:00 75 16 93/49 96 06/01/22 02:51 40 06/01/22 02:00 77 20 96/53 97 06/01/22 01:00 79 20 98/55 97 06/01/22 00:00 98.4 F 85 20 84/52 98 50 05/31/22 23:55 50 05/31/22 23:09 60 05/31/22 23:00 82 20 122/68 97 05/31/22 22:00 89 8 L 94/56 98 05/31/22 21:00 81 20 97/59 99 05/31/22 20:09 60 05/31/22 20:00 98.4 F 84 20 119/76 100 70 05/31/22 19:31 70 05/31/22 19:00 89 20 100 70 05/31/22 18:30 86 20 100 05/31/22 18:15 89 22 128/79 100 05/31/22 18:00 92 20 100 70 05/31/22 17:46 70 05/31/22 17:45 92 21 100 05/31/22 17:30 92 20 98 05/31/22 17:15 84 20 93/64 97 05/31/22 17:00 80 20 103/64 99 05/31/22 16:55 80 20 103/64 99 05/31/22 16:50 82 18 98 05/31/22 16:45 80 20 103/64 98 05/31/22 16:40 86 20 103/64 90 L 05/31/22 16:35 97.5 F L 101 H 18 103/64 98 100 05/31/22 16:30 78 20 103/64 98 70 05/31/22 16:20 71 20 98 05/31/22 16:15 100 05/31/22 16:10 97.5 F L 80 20 111/78 98 05/31/22 16:08 100 05/31/22 16:03 100 05/31/22 15:10 100 05/31/22 15:05 97.5 F L 05/31/22 15:00 100 05/31/22 14:42 89 22 126/92 92 L Intake and Output 05/31/22 06/01/22 06/01/22 22:59 06:59 14:59 Intake Total 954.036 903.000 868.715 Output Total 880 875 272 Balance 74.036 28.000 596.715 Intake: IV 860 700 600 Invasive Line 1 10 Invasive Line 2 10 Potassium Chloride 10 meq 300 In Water For Injection 1 100ml.bag @ 100 mls/hr IVPB Q1HR SAE Rx#: [id number] Sodium Chloride 0.9% 1, 600 650 50 000 ml @ 100 mls/hr IV . Q10H SAE Rx#:[id number] Sodium Chloride 0.9% 1, 50 000 ml @ 50 mls/hr IV . Q20H SAE Rx#:[id number] ceFAZolin 1,000 mg In 50 150 Sodium Chloride 0.9% 50 ml @ 100 mls/hr IVPB Q8HR SAE Rx#:[id number] cefazolin 50 Intake, IV Titration 94.036 203.000 208.715 Amount Norepinephrine 4 mg In 6.657 25.762 84.961 Sodium Chloride 0.9% 250 ml @ 0.03 MCG/KG/MIN 11. 147 mls/hr IV .[id number] SAE Rx#:[id number] propofoL 1,000 mg In 87.379 177.238 123.754 Empty Bag 1 bag @ 15 MCG/ KG/MIN 8.777 mls/hr IV . [id number] SAE Rx#:[id number] Other 60 Output: Gastric Drainage 50 500 Urine 830 375 272 Other: Voiding Method Indwelling Catheter Indwelling Catheter Indwelling Catheter Weight 97.522 kg 97.7 kg 97.7 kg ABP, PAP, CO, CI - Last 8 Hours Arterial Blood Pressure 96/45 Arterial Blood Pressure 105/50 Arterial Blood Pressure 110/54 Arterial Blood Pressure 109/54 Arterial Blood Pressure 112/57 Arterial Blood Pressure 94/48 Arterial Blood Pressure 95/47 Arterial Blood Pressure 93/47 Arterial Blood Pressure 101/49 Arterial Blood Pressure 98/46 Arterial Blood Pressure 103/52 Arterial Blood Pressure 99/42 Arterial Blood Pressure 103/49 Results CBC & Chem 7: 06/01/22 04:30 06/01/22 04:30 Labs: Abnormal Lab Results - Last 24 Hours (Table) 05/31/22 05/31/22 05/31/22 Range/Units 15:08 15:08 15:08 WBC 12.1 H (3.8-10.6) k/uL Hct (39.0-53.0) % Neutrophils # (1.3-7.7) k/uL APTT 21.8 L (22.0-30.0) sec ABG pH (7.35-7.45) ABG pO2 (83-108) mmHg ABG HCO3 (21-25) mmol/L ABG Total CO2 (19-24) mmol/L ABG O2 Saturation (94-97) % Chloride (98-107) mmol/L Carbon Dioxide 19 L (22-30) mmol/L BUN 21 H (9-20) mg/dL Glucose 212 H (74-99) mg/dL POC Glucose (mg/dL) (70-110) mg/dL Calcium (8.4-10.2) mg/dL AST 277 H (17-59) U/L ALT 177 H (4-49) U/L Troponin I (0.000-0.034) ng/mL Total Protein (6.3-8.2) g/dL Albumin (3.5-5.0) g/dL Ur Specific [place] (1.001-1.035) Urine Protein (Negative) Urine Glucose (UA) (Negative) Urine Ketones (Negative) Urine Blood (Negative) Urine RBC (0-5) /hpf Urine Mucus (None) /hpf U Methamphetamines Scrn (NotDetected) 05/31/22 05/31/22 05/31/22 Range/Units 16:35 16:42 16:53 WBC (3.8-10.6) k/uL Hct (39.0-53.0) % Neutrophils # (1.3-7.7) k/uL APTT (22.0-30.0) sec ABG pH 7.31 L (7.35-7.45) ABG pO2 160 H (83-108) mmHg ABG HCO3 20 L (21-25) mmol/L ABG Total CO2 (19-24) mmol/L ABG O2 Saturation 99.2 H (94-97) % Chloride (98-107) mmol/L Carbon Dioxide (22-30) mmol/L BUN (9-20) mg/dL Glucose (74-99) mg/dL POC Glucose (mg/dL) 175 H (70-110) mg/dL Calcium (8.4-10.2) mg/dL AST (17-59) U/L ALT (4-49) U/L Troponin I (0.000-0.034) ng/mL Total Protein (6.3-8.2) g/dL Albumin (3.5-5.0) g/dL Ur Specific [place] (1.001-1.035) Urine Protein (Negative) Urine Glucose (UA) (Negative) Urine Ketones (Negative) Urine Blood (Negative) Urine RBC (0-5) /hpf Urine Mucus (None) /hpf U Methamphetamines Scrn Detected H (NotDetected) 05/31/22 05/31/22 05/31/22 Range/Units 16:56 17:45 18:18 WBC (3.8-10.6) k/uL Hct (39.0-53.0) % Neutrophils # (1.3-7.7) k/uL APTT (22.0-30.0) sec ABG pH (7.35-7.45) ABG pO2 (83-108) mmHg ABG HCO3 (21-25) mmol/L ABG Total CO2 (19-24) mmol/L ABG O2 Saturation (94-97) % Chloride (98-107) mmol/L Carbon Dioxide (22-30) mmol/L BUN (9-20) mg/dL Glucose (74-99) mg/dL POC Glucose (mg/dL) 167 H (70-110) mg/dL Calcium (8.4-10.2) mg/dL AST (17-59) U/L ALT (4-49) U/L Troponin I 4.600 H* (0.000-0.034) ng/mL Total Protein (6.3-8.2) g/dL Albumin (3.5-5.0) g/dL Ur Specific [place] >1.050 H (1.001-1.035) Urine Protein 1+ H (Negative) Urine Glucose (UA) 1+ H (Negative) Urine Ketones 1+ H (Negative) Urine Blood Small H (Negative) Urine RBC 14 H (0-5) /hpf Urine Mucus Rare H (None) /hpf U Methamphetamines Scrn (NotDetected) 06/01/22 06/01/22 06/01/22 Range/Units 04:30 04:30 04:30 WBC 11.4 H (3.8-10.6) k/uL Hct 38.5 L (39.0-53.0) % Neutrophils # 8.8 H (1.3-7.7) k/uL APTT (22.0-30.0) sec ABG pH (7.35-7.45) ABG pO2 (83-108) mmHg ABG HCO3 (21-25) mmol/L ABG Total CO2 (19-24) mmol/L ABG O2 Saturation (94-97) % Chloride 109 H (98-107) mmol/L Carbon Dioxide (22-30) mmol/L BUN (9-20) mg/dL Glucose 108 H (74-99) mg/dL POC Glucose (mg/dL) (70-110) mg/dL Calcium 7.6 L (8.4-10.2) mg/dL AST 230 H (17-59) U/L ALT 151 H (4-49) U/L Troponin I 27.300 H* (0.000-0.034) ng/mL Total Protein 5.4 L (6.3-8.2) g/dL Albumin 3.2 L (3.5-5.0) g/dL Ur Specific [place] (1.001-1.035) Urine Protein (Negative) Urine Glucose (UA) (Negative) Urine Ketones (Negative) Urine Blood (Negative) Urine RBC (0-5) /hpf Urine Mucus (None) /hpf U Methamphetamines Scrn (NotDetected) 06/01/22 06/01/22 Range/Units 05:35 12:18 WBC (3.8-10.6) k/uL Hct (39.0-53.0) % Neutrophils # (1.3-7.7) k/uL APTT (22.0-30.0) sec ABG pH (7.35-7.45) ABG pO2 128 H (83-108) mmHg ABG HCO3 (21-25) mmol/L ABG Total CO2 25 H (19-24) mmol/L ABG O2 Saturation 99.5 H (94-97) % Chloride (98-107) mmol/L Carbon Dioxide (22-30) mmol/L BUN (9-20) mg/dL Glucose (74-99) mg/dL POC Glucose (mg/dL) 113 H (70-110) mg/dL Calcium (8.4-10.2) mg/dL AST (17-59) U/L ALT (4-49) U/L Troponin I (0.000-0.034) ng/mL Total Protein (6.3-8.2) g/dL Albumin (3.5-5.0) g/dL Ur Specific [place] (1.001-1.035) Urine Protein (Negative) Urine Glucose (UA) (Negative) Urine Ketones (Negative) Urine Blood (Negative) Urine RBC (0-5) /hpf Urine Mucus (None) /hpf U Methamphetamines Scrn (NotDetected) Microbiology - Last 24 Hours (Table) 05/31/22 20:19 Sputum Culture - Preliminary Sputum Thrombosis Risk Factor Assmnt - Choose All That Apply Each Factor Represents 1 point: Acute NC, Medical pt on bed rest, Obesity (BMI >25) Other Risk Factors: Yes Each Risk Factor Represents 2 Points: Patient confined to bed Other congenital or acquired thrombophilia - If yes, enter type in comment: No Thrombosis Risk Factor Assessment Total Risk Factor Score: 5 Thrombosis Risk Factor Assessment Level: High Risk
--- NOTE | 2022-06-01 14:43 | PN ---
PROGRESS NOTE SUBJECTIVE: Mr. Nathan underwent stenting of circumflex yesterday. He also came with a cardiac arrest. He is still on a ventilator. We do not know his underlying mental status well, but he is hemodynamically stable. We will pull the sheath. I will supplement potassium with 2 additional doses, check additional troponin. Echo revealed fair systolic function. We will continue other medications as before and also place him on subcutaneous heparin. OBJECTIVE: HEART: S1 and S2 heard normally. No significant murmurs. LUNGS: Reveal bilateral ventilatory-assisted breath sounds. ABDOMEN: Unchanged. LOWER EXTREMITIES: Unchanged. PLAN: To continue current supportive care and see how he does neurologically. MMODL / IJN: [id number] /
[2022-06-01] MEDS: ACETAMINOPHEN TAB 325 MG TAB PO PRN (14:56)
[2022-06-01] MEDS: NOREPINEPHRINE 4 MG in SODIUM CHLORIDE 0.9% 250 ML IV SCH (19:09)
[2022-06-01] MEDS: ATORVASTATIN 80 MG TAB PO SCH (20:46)
[2022-06-01 23:49] LABS: Glucose,Whole Blood 89 mg/dL (70-110)
[2022-06-02 06:47] LABS: Glucose,Whole Blood 92 mg/dL (70-110)
--- NOTE | 2022-06-02 07:49 | XR ---
EXAMINATION TYPE: XR chest 1V portable DATE OF EXAM: 06/02/2022 COMPARISON: 06/01/2022 HISTORY: Tube placement TECHNIQUE: Single frontal view of the chest is obtained. FINDINGS: ET and NG tube is been removed and there is improved aeration in the left lung base and me dial margin unremarkable. Heart size normal. No interstitial edema or pneumothorax. Hypertrophic palacios ge of the spine. IMPRESSION: 1. Mild interval improvement in the bilateral areas of infiltrate.
[2022-06-02] MEDS: INSULIN ASPART (NovoLOG) 100 UNIT/ML VIAL SQ SCH ×4 (08:20→20:09)
[2022-06-02] MEDS: PANTOPRAZOLE 40 MG/10 ML VIAL IVP SCH (08:23)
[2022-06-02] MEDS: TICAGRELOR 90 MG TAB PO SCH ×2 (08:23→20:15)
[2022-06-02] MEDS: ASPIRIN 81 MG PO SCH (08:23)
[2022-06-02] MEDS: METOPROLOL TARTRATE 12.5 MG TAB PO SCH ×3 (08:23→20:15)
[2022-06-02] MEDS: HEPARIN SODIUM,PORCINE/PF 5,000 UNIT/0.5 ML SYRINGE SQ SCH ×2 (08:24→20:16)
[2022-06-02 09:30] LABS: Basophils % (A) 0 %; Eosinophils # (A) 0.1 k/uL (0-0.7); Eosinophils % (A) 1 %; HCT 44.9 % (39.0-53.0); Lymphocytes # (A) 1.2 k/uL (1.0-4.8); Lymphocytes % (A) 15 %; MCHC 33.3 g/dL (31.0-37.0); Mean Platelet Volume 7.2; Monocytes # (A) 0.5 k/uL (0-1.0); Monocytes % (A) 6 %; Neutrophils % (A) 77 %; Platelet Count 212 k/uL (150-450); RBC 4.99 m/uL (4.30-5.90); WBC 7.9 k/uL (3.8-10.6)
[2022-06-02 09:46] LABS: ALT 124 U/L (4-49); AST 192 U/L (17-59); African American GFR (CKD) >90 (>60 ml/min/1.73 sqM); Albumin 4.3 g/dL (3.5-5.0); Alkaline Phosphatase 77 U/L (38-126); Anion Gap 11 mmol/L; Blood Urea Nitrogen 11 mg/dL (9-20); Calcium 8.6 mg/dL (8.4-10.2); Carbon Dioxide 23 mmol/L (22-30); Chloride 110 mmol/L (98-107); Glucose 85 mg/dL (74-99); Non-African American GFR(CKD) >90 (>60 ml/min/1.73 sqM); Potassium 4.1 mmol/L (3.5-5.1); Sodium 144 mmol/L (137-145); Total Bilirubin 1.3 mg/dL (0.2-1.3); Total Protein 7.1 g/dL (6.3-8.2)
--- NOTE | 2022-06-02 10:34 | P.PN ---
Subjective Progress Note Date: 06/02/22 This is a 61-year-old male patient with no significant past medical history. No home prescribed medications. Yesterday the patient was up in the shower was not feeling well and laid down on the bed and he stopped breathing and his cannot feel heartbeat she did start CPR. When EMS arrived the patient was found to be in asystole they continued CPR gave epinephrine and the patient went into V. tach and they did 2 defibrillations and started 150 of amiodarone. He was intubated in the field. Subsequently brought here to the emergency room. EKG showed evidence of subendocardial injury. Troponin 4.6. Peaked at 27.3. Acute ST segment elevation myocardial infarction. He was taken to the cardiac Parking Inspector and had undergone stenting of the 100% occluded mid circumflex artery. He remained intubated on mechanical ventilator. He is seen this morning in the ICU in consultation. Current vent settings are scarred control mode at a rate of 20, tidal out of 500, FiO2 30% and a PEEP of 5. Morning blood gases revealed a PaO2 of 128, pCO2 35, pH 7.45 on 40% FiO2. He is currently sedated on propofol at 45 mg/kg per minute. He initially required norepinephrine that has since been weaned off. He has normal saline at 50 MLS per hour. Chest x-ray reveals no evidence of focal consolidation or pneumothorax. There is some blunting of the costophrenic angle on the left. Scattered airspace opacities. Sputum culture pending. He is continued on cefazolin. White count 11.4. Hemoglobin 13.4. Sodium 138. Potassium 3.5. Chloride 109. Bicarb 23. BUN 18. Creatinine 0.87. Glucose 108. AST 230. ALT 151. Urine drug screen positive for methamphetamines. Echocardiogram did reveal preserved left ventricular systolic function with ejection fraction 50-55%. No significant valvular abnor malities. The patient is seen today 06/02/2022 in follow-up in the intensive care unit. He was successfully extubated yesterday. He is currently awake and alert in no acute distress. He is maintaining good O2 saturations in the 90s on room air. No IV fluids. He has had some periods of confusion but otherwise doing quite well. He is appropriate today. X-ray shows mild interval improvement in the bilateral areas of infiltrate. Sputum culture pending. White count 7.9. Hemoglobin 15.0. Sodium 134. Potassium 4.1. Chloride 110. BUN 11. Creatinine 0.77. GFR greater than 90. Blood glucose 85. AST 192. ALT 124. He remains on Brilinta, aspirin, statins and beta blockers. Heparin for DVT prophylaxis. Objective - Vital Signs Vital signs: Vital Signs Temp 97.7 F 06/02/22 04:00 Pulse 88 06/02/22 09:00 Resp 24 06/02/22 09:00 BP 137/74 06/02/22 09:00 Pulse Ox 95 06/02/22 09:00 FiO2 30 06/01/22 13:30 Intake & Output 06/01/22 06/02/22 06/02/22 18:59 06:59 18:59 Intake Total 1238.317 300 Output Total 1412 2235 135 Balance -173.683 -1935 -135 Weight 97.7 kg 95.1 kg Intake: IV 950 50 Potassium Chloride 10 meq 400 In Water For Injection 1 100ml.bag @ 100 mls/hr IVPB Q1HR SAE Rx#: [id number] Sodium Chloride 0.9% 1, 50 000 ml @ 100 mls/hr IV . Q10H SAE Rx#:[id number] Sodium Chloride 0.9% 1, 250 000 ml @ 50 mls/hr IV . Q20H SAE Rx#:[id number] ceFAZolin 1,000 mg In 200 50 Sodium Chloride 0.9% 50 ml @ 100 mls/hr IVPB Q8HR SAE Rx#:[id number] cefazolin 50 Intake, IV Titration 228.317 Amount Norepinephrine 4 mg In 84.961 Sodium Chloride 0.9% 250 ml @ 0.03 MCG/KG/MIN 11. 147 mls/hr IV .[id number] SAE Rx#:[id number] propofoL 1,000 mg In 143.356 Empty Bag 1 bag @ 15 MCG/ KG/MIN 8.777 mls/hr IV . [id number] SAE Rx#:[id number] Oral 250 Other 60 Output: Urine 1412 2235 135 Other: Voiding Method Indwelling Catheter Indwelling Catheter Indwelling Catheter ABP, PAP, CO, CI - Last Documented Arterial Blood Pressure 96/45 - Exam GENERAL EXAM: Alert, very pleasant 61-year-old male patient, on room air, comfortable in no apparent distress. HEAD: Normocephalic. EYES: Normal reaction of pupils, equal size. NOSE: Clear with pink turbinates. THROAT: No erythema or exudates. NECK: No masses, no JVD. CHEST: No chest wall deformity. LUNGS: Equal air entry with no crackles, wheeze, rhonchi or dullness. CVS: S1 and S2 normal with no audible murmur, regular rhythm. ABDOMEN: No hepatosplenomegaly, normal bowel sounds, no guarding or rigidity. SPINE: No scoliosis or deformity SKIN: No rashes CENTRAL NERVOUS SYSTEM: No focal deficits, tone is normal in all 4 extremities. EXTREMITIES: There is no peripheral edema. No clubbing, no cyanosis. Peripheral pulses are intact. - Labs CBC & Chem 7: 06/02/22 08:05 06/02/22 08:05 Labs: Abnormal Lab Results - Last 24 Hours (Table) 06/01/22 06/01/22 06/02/22 Range/Units 12:00 12:18 08:05 Chloride 110 H (98-107) mmol/L POC Glucose (mg/dL) 113 H (70-110) mg/dL AST 192 H (17-59) U/L ALT 124 H (4-49) U/L Troponin I 23.300 H* (0.000-0.034) ng/mL Microbiology - Last 24 Hours (Table) 05/31/22 20:19 Gram Stain - Preliminary Sputum Sputum Culture - Preliminary Assessment and Plan Assessment: Acute cardiopulmonary arrest and received CPR, initially in asystole, some ventricular tachycardia, requiring defibrillation 2, intubated in the field. Recovered, extubated on 06/01/2022. On room air today Acute ST segment elevation myocardial infarction with 100% occluded left circumf sammi artery, status post stenting on 05/31/2022 Mildly altered mental status, suspect mild hypoxemic encephalopathy Urine drug screen positive for methamphetamines, at the patient is denying taking any medications that may test positive for methamphetamines Plan: The patient was seen and evaluated Chest x-ray, labs and medications reviewed Recovered and on room air, stable Heparin for DVT prophylaxis Continued on betablockers, statins, aspirin, Brilinta We will continue to follow I have personally seen and examined the patient, performed the documentation and the assessment and plan as written. Number of minutes spent on the visit: 10.
--- NOTE | 2022-06-02 10:41 | PN ---
PROGRESS NOTE SUBJECTIVE: Mr. Nathan woke up yesterday and he was extubated. He came in with acute inferior VT, total occlusion of circumflex with a good angiographic result. However, he seems a bit confused, answers question most of them appropriately, but there is still a fair amount of confusion. I am recommending a Neurology evaluation. I will start him on a small dose of beta eliz and losartan. We will increase activity and see how he does. Labs are pending for today. OBJECTIVE: VITAL SIGNS: Stable. NECK: No JVD. HEART: S1, S2 heard normally. LUNGS: Clear. ABDOMEN: Unchanged. LOWER EXTREMITIES: Unchanged. GROIN: Right groin is clean and dry with a good pulse. MMODL / IJN: [id number] /
--- NOTE | 2022-06-02 11:01 | P.CNNES ---
History of Present Illness Consult date: 06/02/22 Requesting physician: Merissa Perez Reason for Consult: mild anoxic encephalopathy History of Present Illness: This is a 61-year-old gentleman who presented to the emergency department on 05/31/2022 because of cardiopulmonary arrest. Some of the history is obtained from the patient nurse and medical record. On 05/31/2022 the patient was in the shower not feeling well as a result he laid down on his bed and was reported that he stopped breathing and his could not get any pulse so as a result she started CPR. When EMS arrived the patient was asystole and the patient was continued on CPR and was given epinephrine then the patient was a V. tach as a result the patient was shocked twice and received amiodarone and was intubated and in the field. Unsure of exact downtime. In our facility was believe the patient had acute STEMI with a heart percent occluded in the left circumflex artery status post stenting on 05/31/2022. According to the nurse on 06/01/2022 the patient was minimally confused overnight yesterday and cardiology is consulted neurology for possible mild anoxic encephalopathy. According to the nurse she's doing drastically better today without any focal deficit and mentation is alert oriented 3. Patient he feels doing drastically better. Denies of headache, focal weakness, numbness. He denies history of seizures. Some other workup during this hospital visit: Initial troponin was negative on initial presentation then was as high as 23.3 Initial serum glucose recorded was 2012. AST is 277 and ADL T was 177 repeated slightly lower. Drug screen is positive for methamphetamine. Review of Systems Review of system: The 12 point system was reviewed and apparent positive and negative per HPI. Past Medical History Past Medical History: Unable to Obtain History of Any Multi-Drug Resistant Organisms: Unobtainable Past Surgical History: Unable to Obtain Past Anesthesia/Blood Transfusion Reactions: No Reported Reaction Past Psychological History: Unable to Obtain Smoking Status: Unknown if ever smoked Past Alcohol Use History: Unable to Obtain Past Drug Use History: Unable to Obtain - Past Family History Mother Family Medical History: Cancer, Myocardial Infarction (IA) Additional Family Medical History / Comment(s): bladder and bowel cancer, mi age mid 60's Father Family Medical History: Coronary Artery Disease (CAD) Additional Family Medical History / Comment(s): age early to mid 60's father had cabg Brother(s) Family Medical History: Dementia Additional Family Medical History / Comment(s): from etoh abuse and early onset dementia Medications and Allergies Home Medications Medication Instructions Recorded Confirmed Type Aspirin EC [Ecotrin Low Dose] 81 mg PO DAILY 05/31/22 05/31/22 History Multivit-Min/FA/Lycopen/Lutein 1 tab PO DAILY 05/31/22 05/31/22 History [Centrum Silver Tablet] Vitamin B Complex 1 cap PO DAILY 05/31/22 05/31/22 History Vitamin C(Unknown Dose) 1 tab PO DAILY 05/31/22 05/31/22 History Vitamin D3(Unknown Dose) 1 tab PO DAILY 05/31/22 05/31/22 History Allergies Allergy/AdvReac Type Severity Reaction Status Date / Time No Known Allergies Allergy Verified 05/31/22 17:56 Physical Examination - Vital Signs Vital Signs: Vital Signs Temp Pulse Resp BP Pulse Ox FiO2 06/02/22 07:00 92 24 147/88 93 L 06/02/22 06:00 90 22 137/87 94 L 06/02/22 05:00 93 24 133/76 93 L 06/02/22 04:00 97.7 F 93 24 123/72 92 L 06/02/22 03:00 103 H 12 120/66 93 L 06/02/22 02:00 100 24 122/73 93 L 06/02/22 01:00 102 H 24 138/86 94 L 06/02/22 00:00 98.5 F 98 25 H 131/77 93 L 06/01/22 23:00 98 28 H 138/73 92 L 06/01/22 22:00 107 H 22 134/74 92 L 06/01/22 21:00 86 26 H 128/52 92 L 06/01/22 20:00 98.3 F 97 18 120/61 91 L 06/01/22 19:00 109 H 27 H 124/76 93 L 06/01/22 18:00 98 21 122/65 93 L 06/01/22 17:00 87 20 108/67 95 06/01/22 16:30 92 16 108/67 96 06/01/22 16:00 89 16 108/74 96 06/01/22 15:30 79 18 108/74 96 06/01/22 15:00 79 11 L 101/70 97 11/16/22 14:30 76 16 118/74 96 06/01/22 14:00 72 16 116/74 97 06/01/22 13:30 69 20 114/71 98 30 06/01/22 13:00 71 14 90/57 98 30 06/01/22 12:30 68 20 91/60 95 40 06/01/22 12:00 97.9 F 71 21 106/63 94 L 06/01/22 11:30 70 20 113/62 98 06/01/22 11:00 78 17 103/64 97 06/01/22 10:38 30 06/01/22 10:30 70 20 96/63 96 06/01/22 10:00 75 20 99/56 95 30 06/01/22 09:55 74 20 99/63 95 06/01/22 09:50 76 20 100/62 95 06/01/22 09:45 77 20 104/64 95 06/01/22 09:40 79 20 103/64 95 06/01/22 09:35 79 26 H 106/66 96 06/01/22 09:30 78 20 97/66 96 06/01/22 09:25 85 17 94/57 98 06/01/22 09:00 80 20 101/58 96 06/01/22 08:50 82 20 101/58 96 06/01/22 08:45 85 21 101/58 96 Intake and Output 06/01/22 06/02/22 06/02/22 22:59 06:59 14:59 Intake Total 450 50 Output Total 2265 960 135 Balance -1816 -910 -135 Intake: IV 200 50 Sodium Chloride 0.9% 1, 150 000 ml @ 50 mls/hr IV . Q20H SAE Rx#:[id number] ceFAZolin 1,000 mg In 50 50 Sodium Chloride 0.9% 50 ml @ 100 mls/hr IVPB Q8HR SAE Rx#:[id number] Oral 250 Output: Urine 2265 960 135 Other: Voiding Method Indwelling Catheter Indwelling Catheter Weight 95.1 kg GENERAL: The patient is lying in bed and is not in acute distress. CHEST: The heart rate is regular rate rhythm. No murmurs to auscultation. LUNG: Clear to auscultation bilaterally no wheezing noted throughout. Not labored breathing. ABDOMEN/GI: Bowel sounds present in all 4 quadrants. No tenderness to palpation throughout. NEUROLOGICAL: Higher mental function: The patient is awake, alert, oriented to self, place and time. There was delay in answering current date. He is slightly slow responding. Patient is following commands. No aphasia and no neglect. Cranial nerves: The pupils are round, equal and reactive to light and accommodation. Visual cormier are full to confrontation throughout. Extraocular movement is intact no nystagmus is noted. Facial sensation is normal to touch throughout. The facial strength is normal throughout. Hearing is normal bilaterally to hand rub. Tongue is midline and moved [id number] without any difficulty. No dysarthria is noted. Shoulder shrug is normal bilaterally. Motor: The strength is 5 over 5 throughout. Normal tone and bulk. Cerebellum: Normal finger to nose heel to riggs bilaterally. Sensation: Sensation is normal to touch throughout. Reflexes (right/left): 2+ throughout. Plantars are downgoing bilaterally. Results - Laboratory Findings CBC and BMP: 06/02/22 08:05 06/02/22 08:05 Abnormal Lab Findings: Abnormal Labs 05/31/22 05/31/22 05/31/22 15:08 15:08 15:08 WBC 12.1 H Hct Neutrophils # APTT 21.8 L ABG pH ABG pO2 ABG HCO3 ABG Total CO2 ABG O2 Saturation Chloride Carbon Dioxide 19 L BUN 21 H Glucose 212 H POC Glucose (mg/dL) Calcium AST 277 H ALT 177 H Troponin I Total Protein Albumin Ur Specific [place] Urine Protein Urine Glucose (UA) Urine Ketones Urine Blood Urine RBC Urine Mucus U Methamphetamines Scrn 05/31/22 05/31/22 05/31/22 16:35 16:42 16:53 WBC Hct Neutrophils # APTT ABG pH 7.31 L ABG pO2 160 H ABG HCO3 20 L ABG Total CO2 ABG O2 Saturation 99.2 H Chloride Carbon Dioxide BUN Glucose POC Glucose (mg/dL) 175 H Calcium AST ALT Troponin I Total Protein Albumin Ur Specific [place] Urine Protein Urine Glucose (UA) Urine Ketones Urine Blood Urine RBC Urine Mucus U Methamphetamines Scrn Detected H 05/31/22 05/31/22 05/31/22 16:56 17:45 18:18 WBC Hct Neutrophils # APTT ABG pH ABG pO2 ABG HCO3 ABG Total CO2 ABG O2 Saturation Chloride Carbon Dioxide BUN Glucose POC Glucose (mg/dL) 167 H Calcium AST ALT Troponin I 4.600 H* Total Protein Albumin Ur Specific [place] >1.050 H Urine Protein 1+ H Urine Glucose (UA) 1+ H Urine Ketones 1+ H Urine Blood Small H Urine RBC 14 H Urine Mucus Rare H U Methamphetamines Scrn 06/01/22 06/01/22 06/01/22 04:30 04:30 04:30 WBC 11.4 H Hct 38.5 L Neutrophils # 8.8 H APTT ABG pH ABG pO2 ABG HCO3 ABG Total CO2 ABG O2 Saturation Chloride 109 H Carbon Dioxide BUN Glucose 108 H POC Glucose (mg/dL) Calcium 7.6 L AST 230 H ALT 151 H Troponin I 27.300 H* Total Protein 5.4 L Albumin 3.2 L Ur Specific [place] Urine Protein Urine Glucose (UA) Urine Ketones Urine Blood Urine RBC Urine Mucus U Methamphetamines Scrn 06/01/22 06/01/22 06/01/22 05:35 12:00 12:18 WBC Hct Neutrophils # APTT ABG pH ABG pO2 128 H ABG HCO3 ABG Total CO2 25 H ABG O2 Saturation 99.5 H Chloride Carbon Dioxide BUN Glucose POC Glucose (mg/dL) 113 H Calcium AST ALT Troponin I 23.300 H* Total Protein Albumin Ur Specific [place] Urine Protein Urine Glucose (UA) Urine Ketones Urine Blood Urine RBC Urine Mucus U Methamphetamines Scrn Assessment and Plan Assessment: Altered mental status likely due to anoxic encephalopathy. Currently patient is oriented X3 and no focal deficits. Cardiopulmonary arrest and initially the patient was asystole then was V-tach. He received CPR and defibrillatorX2. Unknown downtime. As a result he required to be intubated in the field Acute STEMI with 100% occluded left circumflex artery status post stenting 05/31/2022 Mild elevated LFTs (AST and LFT) likely reactive from anoxia to organ---slightly trending down Positive for methamphetamine use Plan: I ordered an urgent EEG to rule out any seizure or discharge or cerebral/focal dysfunction on EEG. Also ordered CT brain. Ordered ammonia level Every 3 hours neuro checks Cardiology is on board We'll defer the rest of the medical management to the primary ICU team Thank you for the consultation Time with Patient: Greater than 30
[2022-06-02 11:27] LABS: Glucose,Whole Blood 96 mg/dL (70-110)
--- NOTE | 2022-06-02 12:40 | CT ---
EXAMINATION TYPE: CT brain wo con DATE OF EXAM: 06/02/2022 COMPARISON: None HISTORY: Altered mental status. CT DLP: 1247.4 mGycm Automated exposure control for dose reduction was used. FINDINGS: Mild to moderate generalized degenerative change with faint low attenuation in the white matter which is nonspecific. No midline shift or mass effect. Orbits are symmetric. Calvarium intact. Craniocervical junction maintained. IMPRESSION: DEGENERATIVE AND NONSPECIFIC WHITE MATTER CHANGES MOST TYPICAL OF REMOTE ISCHEMIA. IF CONCERN FOR ACU TE ISCHEMIA CORRELATE WITH MRI CLINICALLY WARRANTED.
[2022-06-02 12:44] VITALS: BMI 28.4
--- NOTE | 2022-06-02 16:28 | P.PN ---
Subjective Progress Note Date: 06/02/22 61-year-old male had a cardiac arrest which followed chest pain patient was resuscitated what appears to be around 5-7 minutes patient received 2 shocks. Patient was complaining of chest pain followed by unresponsiveness 911 was called and patient was associated for 10 minutes patient was found to be in V. tach 2 shocks were given with the 150 mg of amiodarone patient was subsequently brought to ER intubated underwent cardiac catheterization for acute ST elevation myocardial infarction and found to have 100% occlusion of mid circumflex which was stented patient peak troponin was around 27 patient is presently intubated on pressor support can use to be on propofol patient is on 30% FiO2 assist c ontrol/volume-controlled ventilation PEEp of 5 patient is a bleeding or the ventilator patient does have brainstem reflexes. Chest x-ray did not show any air space opacities or pulmonary edema or pleural effusions. 06/02/2022 Patient is seen and evaluated in follow-up continues to be in the ICU with cardiology following closely. Patient is post cardiac catheterization and underwent stenting as he had total occlusion of the circumflex and is being monitored closely on telemetry monitoring. Patient is a transfer out of the ICU awaiting a bed on the stepdown unit. Patient is currently working on getting up with physical therapy as he does have weakness. Neurology was also consulted as patient continued to be confused after extubation and undergoing neurological workup which is in progress. Patient's mentation on exam is alert and oriented 3. Patient currently denies chest pain or shortness of breath. Patient is sitting up at the side of the bed on room air in no distress. Patient denies nausea or vomiting and is tolerating diet. Labs this morning were reviewed and within normal limits although ALT, AST are elevated. Review of systems: Constitutional: No reports of fatigue, fever, or chills Cardiovascular: No reports of chest pain or palpitations Respiratory: No reports of shortness of breath or cough GI: No reports of nausea, vomiting, or diarrhea : No reports of dysuria or retention Neurovascular: reports of generalized weakness All medications have been reviewed PHYSICAL EXAMINATION: GENERAL: 61-year-old male awake, alert and oriented 3, currently sitting up at the side of the bed, well-developed, well-nourished HEENT: Pupils are round and equally reacting to light. EOMI. No scleral icterus. No conjunctival pallor. Normocephalic, atraumatic. No pharyngeal erythema. No thyromegaly. CARDIOVASCULAR: S1 and S2 present. No murmurs, rubs, or gallops. PULMONARY: Chest is clear to auscultation, no wheezing or crackles. ABDOMEN: Soft, nontender, nondistended, normoactive bowel sounds. No palpable organomegaly. MUSCULOSKELETAL: No joint swelling or deformity. EXTREMITIES: No cyanosis, clubbing, or pedal edema. NEUROLOGICAL: Awake, alert and oriented 3, no focal deficits noted SKIN: No rashes. Assessment: -Acute ST elevation myocardial infarction, patient is status post cardiac catheterization with stenting of 100% occlusion to the circumflex -Cardio pulmonary/ventricular tachycardia secondary to myocardial infarction -Acute respiratory failure secondary to cardiopulmonary arrest -Positive drug screen for methamphetamines -GI prophylaxis -DVT prophylaxis: Heparin -Full code Plan: Recommend to continue with current medications and management per cardiology following closely. Neurology following as well as patient was having some continued confusion postextubation cardiology consulted neurology for further evaluation and underg oing neurological workup Patient with extensive weakness recommending PT/OT therapy evaluation Will follow-up with repeat labs and recommend repeat and trending of liver functions as they are elevated Recommend continue telemetry monitoring Patient is currently being transferred out of the ICU on the stepdown once a bed becomes available Prognosis is guarded The impression and plan of care has been dictated by Jossie Maravilla, Nurse Practitioner as directed. Dr. Danie MD I have performed a history and examination and MDM of this patient, discussed the same with the dictator, and agree with the dictator's assessment and plan as written ,documented as a scribe. Based on total visit time, I have performed more than 50% of the visit. Objective - Vital Signs Vital signs: Vital Signs Temp 97.7 F 06/02/22 04:00 Pulse 88 06/02/22 09:00 Resp 24 06/02/22 09:00 BP 137/74 06/02/22 09:00 Pulse Ox 95 06/02/22 09:00 FiO2 30 06/01/22 13:30 Intake & Output 06/01/22 06/02/22 06/02/22 18:59 06:59 18:59 Intake Total 1238.317 300 Output Total 1412 2235 135 Balance -173.683 -1935 -135 Weight 97.7 kg 95.1 kg Intake: IV 950 50 Potassium Chloride 10 meq 400 In Water For Injection 1 100ml.bag @ 100 mls/hr IVPB Q1HR SAE Rx#: [id number] Sodium Chloride 0.9% 1, 50 000 ml @ 100 mls/hr IV . Q10H SAE Rx#:[id number] Sodium Chloride 0.9% 1, 250 000 ml @ 50 mls/hr IV . Q20H SAE Rx#:[id number] ceFAZolin 1,000 mg In 200 50 Sodium Chloride 0.9% 50 ml @ 100 mls/hr IVPB Q8HR SAE Rx#:[id number] cefazolin 50 Intake, IV Titration 228.317 Amount Norepinephrine 4 mg In 84.961 Sodium Chloride 0.9% 250 ml @ 0.03 MCG/KG/MIN 11. 147 mls/hr IV .[id number] SAE Rx#:[id number] propofoL 1,000 mg In 143.356 Empty Bag 1 bag @ 15 MCG/ KG/MIN 8.777 mls/hr IV . [id number] SAE Rx#:[id number] Oral 250 Other 60 Output: Urine 1412 2235 135 Other: Voiding Method Indwelling Catheter Indwelling Catheter Indwelling Catheter ABP, PAP, CO, CI - Last Documented Arterial Blood Pressure 96/45 - Labs CBC & Chem 7: 06/02/22 08:05 06/02/22 08:05 Labs: Abnormal Lab Results - Last 24 Hours (Table) 06/01/22 06/01/22 Range/Units 12:00 12:18 POC Glucose (mg/dL) 113 H (70-110) mg/dL Troponin I 23.300 H* (0.000-0.034) ng/mL
[2022-06-02 16:39] LABS: Glucose,Whole Blood 108 mg/dL (70-110)
[2022-06-02 19:52] LABS: Glucose,Whole Blood 89 mg/dL (70-110)
[2022-06-02] MEDS: ATORVASTATIN 80 MG TAB PO SCH (20:16)
[2022-06-02] MEDS: LOSARTAN 25 MG TAB PO SCH (20:16)
[2022-06-03] MEDS: ACETAMINOPHEN TAB 325 MG TAB PO PRN (01:56)
[2022-06-03 05:48] LABS: Glucose,Whole Blood 107 mg/dL (70-110)
[2022-06-03] MEDS: INSULIN ASPART (NovoLOG) 100 UNIT/ML VIAL SQ SCH ×4 (06:36→22:38)
[2022-06-03] MEDS: TICAGRELOR 90 MG TAB PO SCH ×2 (09:40→21:13)
[2022-06-03] MEDS: ASPIRIN 81 MG PO SCH (09:40)
[2022-06-03] MEDS: METOPROLOL TARTRATE 12.5 MG TAB PO SCH ×3 (09:41→21:13)
[2022-06-03] MEDS: PANTOPRAZOLE 40 MG/10 ML VIAL IVP SCH (09:41)
[2022-06-03] MEDS: HEPARIN SODIUM,PORCINE/PF 5,000 UNIT/0.5 ML SYRINGE SQ SCH ×2 (09:41→21:13)
[2022-06-03 11:46] LABS: Glucose,Whole Blood 107 mg/dL (70-110)
--- NOTE | 2022-06-03 11:47 | P.PN ---
Subjective Progress Note Date: 06/03/22 HISTORY OF PRESENT ILLNESS: This is a 61-year-old male who presented to the emergency room after he was found to be in cardiac arrest at home. Patient arrived to the emergency room i ntubated on mechanical ventilation. He underwent cardiac catheterization with Dr. Perez and had PCI to the mid circumflex. Patient has since been extubated and has been transferred out of the intensive care unit to the cardiac stepdown unit. Patient currently denies chest pain or pressure. Patient is having some confusion and memory impairment this morning. Neurology is currently following. PHYSICAL EXAM: VITAL SIGNS: Reviewed. GENERAL: Well-developed in no acute distress. NECK: Supple. No JVD or thyromegaly LUNGS: Respirations even and unlabored. Lungs essentially clear to auscultation bilaterally. HEART: Regular rate and rhythm. S1 and S2 heard. EXTREMITIES: Normal range of motion. No clubbing or cyanosis. Peripheral pulses intact. No lower extremity edema ASSESSMENT: STEMI, s/p PCI to circumflex Cardiac arrest, prior to hospital, initially asystole and then ventricular tachycardia, s/p defibrillation x 2 Altered mental status/cognitive impairment Memory impairment Toxicology screen positive for methamphetamines PLAN: Neurology following Continue current cardiac medications Case management consulted to check cost of Brilinta. Continue aspirin as well. Continue additional cardiac medications Increase ambulation as tolerated Further recommendations pending patient course Nurse practitioner note has been reviewed by physician. Signing provider agrees with the documented findings, assessment, and plan of care. Objective - Vital Signs Vital signs: Vital Signs Temp 97.5 F L 06/03/22 09:40 Pulse 71 06/03/22 09:40 Resp 18 06/03/22 09:40 BP 124/78 06/03/22 09:40 Pulse Ox 96 06/03/22 09:40 FiO2 30 06/01/22 13:30 Intake & Output 06/02/22 06/03/22 06/03/22 18:59 06:59 18:59 Intake Total 300 500 118 Output Total 460 Balance -160 500 118 Weight 95.1 kg Intake: Intake, IV Titration 50 Amount ceFAZolin 1,000 mg In 50 Sodium Chloride 0.9% 50 ml @ 100 mls/hr IVPB Q8HR [facility] Rx#:[id number] Oral 250 500 118 Output: Urine 460 Other: Voiding Method Indwelling Catheter # Voids 1 # Bowel Movements 1 ABP, PAP, CO, CI - Last Documented Arterial Blood Pressure 96/45 - Labs CBC & Chem 7: 06/02/22 08:05 06/02/22 08:05 Labs: Microbiology - Last 24 Hours (Table) 05/31/22 20:19 Gram Stain - Preliminary Sputum Sputum Culture - Preliminary
--- NOTE | 2022-06-03 12:17 | P.PN ---
Subjective Progress Note Date: 06/03/22 The patient is seen at bedside and per swim instructor, he feel patient continues to be confused. Pulmonary feels his mentation has improved. Patient feels he is doing well and denies of any headache or any focal deficits. Objective - Vital Signs Vital signs: Vital Signs Temp 97.5 F L 06/03/22 09:40 Pulse 71 06/03/22 09:40 Resp 18 06/03/22 09:40 BP 124/78 06/03/22 09:40 Pulse Ox 96 06/03/22 09:40 FiO2 30 06/01/22 13:30 Intake & Output 06/02/22 06/03/22 06/03/22 18:59 06:59 18:59 Intake Total 300 500 118 Output Total 460 Balance -160 500 118 Weight 95.1 kg Intake: Intake, IV Titration 50 Amount ceFAZolin 1,000 mg In 50 Sodium Chloride 0.9% 50 ml @ 100 mls/hr IVPB Q8HR [facility] Rx#:[id number] Oral 250 500 118 Output: Urine 460 Other: Voiding Method Indwelling Catheter # Voids 1 # Bowel Movements 1 ABP, PAP, CO, CI - Last Documented Arterial Blood Pressure 96/45 - Exam GENERAL: The patient is lying in bed and is not in acute distress. NEUROLOGICAL: Higher mental function: The patient is awake, alert, oriented to self, place and time. There was delay in answering questions. He is slightly slow responding and has laughter at times while pausing. Patient is following commands. No aphasia and no neglect. Cranial nerves: The pupils are round, equal and reactive to light and accommodation. Visual cormier are full to confrontation throughout. Extraocular movement is intact no nystagmus is noted. Facial sensation is normal to touch throughout. The facial strength is normal throughout. Hearing is normal bilaterally to hand rub. Tongue is midline and moved [id number] without any difficulty. No dysarthria is noted. Shoulder shrug is normal bilaterally. Motor: The strength is 5 over 5 throughout. Normal tone and bulk. Cerebellum: Normal finger to nose heel to riggs bilaterally. Sensation: Sensation is normal to touch throughout. Reflexes (right/left): 2+ throughout. Plantars are downgoing bilaterally. SOME OF THE WORK-UP DURING THIS HOSPITAL VISIT CONSISTED OF: CT of the head is reported as degenerative and nonspecific white matter changes most typical of remote ischemia. If concern for acute ischemia correlate with MRI as clinically warranted. Ammonia is 15. - Labs CBC & Chem 7: 06/02/22 08:05 06/02/22 08:05 Labs: Microbiology - Last 24 Hours (Table) 05/31/22 20:19 Gram Stain - Preliminary Sputum Sputum Culture - Preliminary Assessment and Plan Assessment: Altered mental status likely due to anoxic encephalopathy. Currently patient is oriented X3 but has delay to responding. No focal deficits. Cardiopulmonary arrest and initially the patient was asystole then was V-tach. He received CPR and defibrillatorX2. Unknown downtime. As a result he required to be intubated in the field Acute STEMI with 100% occluded left circumflex artery status post stenting 05/31/2022 Mild elevated LFTs (AST and LFT) likely reactive from anoxia to organ---slightly trending down Positive for methamphetamine use Plan: Pending urgent EEG to rule out any seizure or discharge or cerebral/focal dysfunction on EEG. I ordered MRI of the brain to rule out any acute or subacute the changes not seen on the CT head. I ordered TSH, vitamin B-12, folate Continue neuro checks Cardiology is on board We'll defer the rest of the medical management to the primary ICU team The plan was discussed with the cardiology team. Time with Patient: Less than 30
--- NOTE | 2022-06-03 12:40 | P.PN ---
Subjective Progress Note Date: 06/03/22 Principal diagnosis: Cardiac arrest. This is a 61-year-old male patient with no significant past medical history. No home prescribed medications. Yesterday the patient was up in the shower was not feeling well and laid down on the bed and he stopped breathing and his judy ot feel heartbeat she did start CPR. When EMS arrived the patient was found to be in asystole they continued CPR gave epinephrine and the patient went into V. tach and they did 2 defibrillations and started 150 of amiodarone. He was intubated in the field. Subsequently brought here to the emergency room. EKG showed evidence of subendocardial injury. Troponin 4.6. Peaked at 27.3. Acute ST segment elevation myocardial infarction. He was taken to the cardiac Data Scientist and had undergone stenting of the 100% occluded mid circumflex artery. He remained intubated on mechanical ventilator. He is seen this morning in the ICU in consultation. Current vent settings are scarred control mode at a rate of 20, tidal out of 500, FiO2 30% and a PEEP of 5. Morning blood gases revealed a PaO2 of 128, pCO2 35, pH 7.45 on 40% FiO2. He is currently sedated on propofol at 45 mg/kg per minute. He initially required norepinephrine that has since been weaned off. He has normal saline at 50 MLS per hour. Chest x-ray reveals no evidence of focal consolidation or pneumothorax. There is some blunting of the costophrenic angle on the left. Scattered airspace opacities. Sputum culture pending. He is continued on cefazolin. White count 11.4. Hemoglobin 13.4. Sodium 138. Potassium 3.5. Chloride 109. Bicarb 23. BUN 18. Creatinine 0.87. Glucose 108. AST 230. ALT 151. Urine drug screen positive for methamphetamines. Echocardiogram did reveal preserved left ventricular systolic function with ejection fraction 50-55%. No significant valvular abnormalities. The patient is seen today 06/02/2022 in follow-up in the intensive care unit. He was successfully extubated yesterday. He is currently awake and alert in no acute distress. He is maintaining good O2 saturations in the 90s on room air. No IV fluids. He has had some periods of confusion but otherwise doing quite well. He is appropriate today. X-ray shows mild interval improvement in the bilateral areas of infiltrate. Sputum culture pending. White count 7.9. Hemoglobin 15.0. Sodium 134. Potassium 4.1. Chloride 110. BUN 11. Creatinine 0.77. GFR greater than 90. Blood glucose 85. AST 192. ALT 124. He remains on Brilinta, aspirin, statins and beta blockers. Heparin for DVT prophylaxis. Progress note dated 06/03/2022. The patient is resting comfortably in room 361. He is on room air. He's not re ceiving any IV fluids. No word on possible discharge. Clinically, he looks well. No new labs today other than a glucose of 107. Brain CT from yesterday shows degenerative and nonspecific white matter changes most typical of remote ischemia. Objective - Vital Signs Vital signs: Vital Signs Temp 97.5 F L 06/03/22 09:40 Pulse 71 06/03/22 09:40 Resp 18 06/03/22 09:40 BP 124/78 06/03/22 09:40 Pulse Ox 96 06/03/22 09:40 FiO2 30 06/01/22 13:30 Intake & Output 06/02/22 06/03/22 06/03/22 18:59 06:59 18:59 Intake Total 300 500 118 Output Total 460 Balance -160 500 118 Weight 95.1 kg Intake: Intake, IV Titration 50 Amount ceFAZolin 1,000 mg In 50 Sodium Chloride 0.9% 50 ml @ 100 mls/hr IVPB Q8HR [facility] Rx#:[id number] Oral 250 500 118 Output: Urine 460 Other: Voiding Method Indwelling Catheter # Voids 1 # Bowel Movements 1 ABP, PAP, CO, CI - Last Documented Arterial Blood Pressure 96/45 - Exam No acute distress, oriented 3. HEENT examination is grossly unremarkable. Neck supple. Full range of motion. No adenopathy thyromegaly or neck vein distention. Cardiovascular examination reveals regular rhythm rate. S1-S2 normal. No S3 or S4. No discernible murmur noted. Heart rate 71 bpm. Lungs reveal clear breath sounds. Breath sounds are equal bilaterally. No adventitious lung sounds including wheezes rhonchi or crackles. Room air saturation is 96%. Abdomen soft bowel sounds are heard. No masses or tenderness. Extremities are intact. No cyanosis clubbing or edema. Skin is without rash or lesion. Neurologic examination is brief but nonfocal. - Labs CBC & Chem 7: 06/02/22 08:05 06/02/22 08:05 Labs: Microbiology - Last 24 Hours (Table) 05/31/22 20:19 Gram Stain - Preliminary Sputum Sputum Culture - Preliminary Assessment and Plan Assessment: Cardiopulmonary arrest, status post CPR, status post intubation, with successful extubation on 06/01/2022. Acute ST segment elevation myocardial infarction, status post stenting of the left circumflex artery, 05/31/2022. 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 Urine drug screen positive for methamphetamines. Plan: Plan dated 06/03/2022. The patient's doing well. The patient will be discharged soon. The patient's currently on room air, and not receiving any IV fluids. He continues on beta blockers, statins, aspirin, and Brilinta. Labs, x-rays, and medications are reviewed. Prognosis is guarded. No active respiratory issues at this time. Time with Patient: Less than 30
--- NOTE | 2022-06-03 17:11 | MR ---
EXAMINATION TYPE: MR brain wo con DATE OF EXAM: 06/03/2022 4:53 PM COMPARISON: 06/02/2022. CLINICAL INDICATION:Male, 61 years old with history of confusion. has cardiac arrest; TECHNIQUE: Multi planar, multi sequence imaging was performed through the brain including: T1, T2, In version recovery, Diffusion weighted imaging, and gradient echo imaging. No gadolinium was given. FINDINGS: The mora-white junctions, ventricular system, and cisterns appear unremarkable. Scattered foci of hi gh T2 signal intensity are seen within the periventricular white matter. Midline structures show no a bnormality. Diffusion-weighted imaging shows no evidence of restricted diffusion. The susceptibility weighted images do not reveal any evidence for micro-hemorrhage. The bone marrow signal is within normal limits. The paranasal sinuses and globes are unremarkable. IMPRESSION: 1. No evidence of intracranial mass or acute/subacute infarct. 2. Nonspecific white matter changes, likely secondary to small vessel ischemic disease.
[2022-06-03 17:13] LABS: Glucose,Whole Blood 104 mg/dL (70-110)
[2022-06-03] MEDS: ATORVASTATIN 80 MG TAB PO SCH (21:13)
[2022-06-03] MEDS: LOSARTAN 25 MG TAB PO SCH (21:13)
--- NOTE | 2022-06-03 23:18 | EEG ---
ELECTROENCEPHALOGRAM REPORT CLINICAL HISTORY: This is a 61-year-old gentleman with altered mental status post cardiopulmonary arrest. The video EEG is obtained to evaluate for seizure epileptiform activity. RELEVANT MEDICATION: The patient is not on any antiepileptic drugs. EEG TYPE: A routine 21-channel EEG is performed with video using the 10/20 electrode placement system. DESCRIPTION: Wakefulness is only obtained. During awake state, the posterior-dominant rhythm consists of 9 to 10 hertz activity that is well modulated, well sustained. There is no physiological stage 2 sleep architecture. There is no focal slowing. Interictal and ictal is none. ACTIVATION PROCEDURE: Photic stimulation did not evoke a posterior driving response. There is no abnormality during the photic stimulation. Hyperventilation is not performed. This is a normal routine EEG. There is no focal slowing, epileptiform discharge, or seizure on the EEG. A normal routine EEG does not exclude underlying epilepsy. Clinical correlation is recommended. LENO / CEDRIC: [id number] /
[2022-06-04] MEDS ORDERED: MELATONIN 5 MG TABLET PO PRN (02:27)
[2022-06-04] MEDS: guaiFENesin-DM 100-10MG/5ML 10 ML CUP PO PRN ×2 (02:44→11:24)
--- NOTE | 2022-06-04 05:54 | P.PN ---
Subjective Progress Note Date: 06/03/22 61-year-old male had a cardiac arrest which followed chest pain patient was resuscitated what appears to be around 5-7 minutes patient received 2 shocks. Patient was complaining of chest pain followed by unresponsiveness 911 was called and patient was associated for 10 minutes patient was found to be in V. tach 2 shocks were given with the 150 mg of amiodarone patient was subsequently brought to ER intubated underwent cardiac catheterization for acute ST elevation myocardial infarction and found to have 100% occlusion of mid circumflex which was stented patient peak troponin was around 27 patient is presently intubated on pressor support can use to be on propofol patient is on 30% FiO2 assist c ontrol/volume-controlled ventilation PEEp of 5 patient is a bleeding or the ventilator patient does have brainstem reflexes. Chest x-ray did not show any air space opacities or pulmonary edema or pleural effusions. 06/02/2022 Patient is seen and evaluated in follow-up continues to be in the ICU with cardiology following closely. Patient is post cardiac catheterization and underwent stenting as he had total occlusion of the circumflex and is being monitored closely on telemetry monitoring. Patient is a transfer out of the ICU awaiting a bed on the stepdown unit. Patient is currently working on getting up with physical therapy as he does have weakness. Neurology was also consulted as patient continued to be confused after extubation and undergoing neurological workup which is in progress. Patient's mentation on exam is alert and oriented 3. Patient currently denies chest pain or shortness of breath. Patient is sitting up at the side of the bed on room air in no distress. Patient denies nausea or vomiting and is tolerating diet. Labs this morning were reviewed and within normal limits although ALT, AST are elevated. 06/03/2022 Patient is seen here in follow-up today currently sitting up in bed eating lunch with at the bedside. Cardiology following as well as neurology and to undergo EEG and MRI of the brain. Neurologic work up thus far is negative and patient is alert and oriented x3. is hoping for a discharge soon as well as the patient. Patient denies chest pain or shortness of breath. Patient reports chest wall pain, but denies palpitations or lightheadedness or dizziness. Patient has been up and walking with no difficulty. Denies nausea or vomiting and tolerating diet. Afebrile. Plans for return home once cleared by neurology and cardiology. LFT trending down. Review of systems: Constitutional: No reports of fatigue, fever, or chills Cardiovascular: No reports of chest pain or palpitations, reports some chest wall tenderness Respiratory: No reports of shortness of breath or cough GI: No reports of nausea, vomiting, or diarrhea : No reports of dysuria or retention Neurovascular: no reports of generalized weakness All medications have been reviewed PHYSICAL EXAMINATION: GENERAL: 61-year-old male awake, alert and oriented 3, currently sitting up at the side of the bed, well-developed, well-nourished HEENT: Pupils are round and equally reacting to light. EOMI. No scleral icterus. No conjunctival pallor. Normocephalic, atraumatic. No pharyngeal erythema. No thyromegaly. CARDIOVASCULAR: S1 and S2 present. No murmurs, rubs, or gallops. PULMONARY: Chest is clear to auscultation, no wheezing or crackles. ABDOMEN: Soft, nontender, nondistended, normoactive bowel sounds. No palpable organomegaly. MUSCULOSKELETAL: No joint swelling or deformity. EXTREMITIES: No cyanosis, clubbing, or pedal edema. NEUROLOGICAL: Awake, alert and oriented 3, no focal deficits noted SKIN: No rashes. Assessment: -Acute ST elevation myocardial infarction, patient is status post cardiac catheterization with stenting of 100% occlusion to the circumflex -Cardio pulmonary/ventricular tachycardia secondary to myocardial infarction -Acute respiratory failure secondary to cardiopulmonary arrest -Positive drug screen for methamphetamines -GI prophylaxis -DVT prophylaxis: Heparin -Full code Plan: Recommend to continue with current medications and management per cardiology following closely. Neurology following as well as patient was having some continued confusion post- extubation cardiology consulted neurology for further evaluation and undergoing neurological workup and thus far has been negative, patient to have eeg and mri of the brain today PT/OT therapy evaluation, encouraged increased activity as tolerated Repeat labs in am and trending of liver functions as they are elevated, trending down on todays labs Recommend to continue telemetry monitoring Patient is currently on the stepdown unit and out of the ICU Prognosis is guarded Possible discharge in 24-48 hours once cleared by cardiology The impression and plan of care has been dictated by Jossie Maravilla, Nurse Practitioner as directed. Dr. Danie MD I have performed a history and examination and MDM of this patient, discussed the same with the dictator, and agree with the dictator's assessment and plan as written ,documented as a scribe. Based on total visit time, I have performed more than 50% of the visit. Objective - Vital Signs Vital signs: Vital Signs Temp 97.4 F L 06/03/22 00:00 Pulse 86 06/03/22 04:00 Resp 16 06/03/22 04:00 BP 124/76 06/03/22 04:00 Pulse Ox 96 06/03/22 04:00 FiO2 30 06/01/22 13:30 Intake & Output 06/02/22 06/03/22 06/03/22 18:59 06:59 18:59 Intake Total 300 500 118 Output Total 460 Balance -160 500 118 Weight 95.1 kg Intake: Intake, IV Titration 50 Amount ceFAZolin 1,000 mg In 50 Sodium Chloride 0.9% 50 ml @ 100 mls/hr IVPB Q8HR [facility] Rx#:[id number] Oral 250 500 118 Output: Urine 460 Other: Voiding Method Indwelling Catheter # Voids 1 # Bowel Movements 1 ABP, PAP, CO, CI - Last Documented Arterial Blood Pressure 96/45 - Labs CBC & Chem 7: 06/02/22 08:05 06/02/22 08:05 Labs: Microbiology - Last 24 Hours (Table) 05/31/22 20:19 Gram Stain - Preliminary Sputum Sputum Culture - Preliminary
[2022-06-04 07:44] VITALS: RESP 16; TEMP 98.3
[2022-06-04] MEDS: TICAGRELOR 90 MG TAB PO SCH (07:48)
[2022-06-04] MEDS: HEPARIN SODIUM,PORCINE/PF 5,000 UNIT/0.5 ML SYRINGE SQ SCH (07:48)
[2022-06-04] MEDS: ASPIRIN 81 MG PO SCH (07:48)
[2022-06-04] MEDS: PANTOPRAZOLE 40 MG/10 ML VIAL IVP SCH (07:48)
[2022-06-04] MEDS: METOPROLOL TARTRATE 12.5 MG TAB PO SCH (07:49)
[2022-06-04 09:19] LABS: ALT 72 U/L (4-49); AST 64 U/L (17-59); African American GFR (CKD) >90 (>60 ml/min/1.73 sqM); Albumin 4.2 g/dL (3.5-5.0); Alkaline Phosphatase 84 U/L (38-126); Anion Gap 11 mmol/L; Blood Urea Nitrogen 18 mg/dL (9-20); Calcium 9.2 mg/dL (8.4-10.2); Carbon Dioxide 19 mmol/L (22-30); Chloride 105 mmol/L (98-107); Glucose 109 mg/dL (74-99); Non-African American GFR(CKD) >90 (>60 ml/min/1.73 sqM); Potassium 4.2 mmol/L (3.5-5.1); Sodium 135 mmol/L (137-145); Total Bilirubin 1.4 mg/dL (0.2-1.3); Total Protein 7.1 g/dL (6.3-8.2)
[2022-06-04 11:07] VITALS: BP 102/73; PULSE 88
[2022-06-04] MEDS ORDERED: BENZONATATE 100 MG CAP PO SCH (11:15)
--- NOTE | 2022-06-04 12:07 | P.PN ---
Subjective Progress Note Date: 06/04/22 The patient is seen at bedside and he feels drastically better. Per nursing staff, mentation improved. Objective - Vital Signs Vital signs: Vital Signs Temp 98.3 F 06/04/22 07:41 Pulse 88 06/04/22 11:07 Resp 16 06/04/22 11:07 BP 102/73 06/04/22 11:07 Pulse Ox 94 L 06/04/22 11:07 FiO2 30 06/01/22 13:30 Intake & Output 06/03/22 06/04/22 06/04/22 18:59 06:59 18:59 Intake Total 776 Balance 776 Intake: Oral 776 Other: Voiding Method Indwelling Catheter Toilet Toilet Urinal Urinal # Voids 1 1 ABP, PAP, CO, CI - Last Documented Arterial Blood Pressure 96/45 - Exam GENERAL: The patient is lying in bed and is not in acute distress. NEUROLOGICAL: Higher mental function: The patient is awake, alert, oriented to self, place and time. Seems more responsive today compared to yesterday. Patient is following commands. No aphasia and no neglect. Cranial nerves: The pupils are round, equal and reactive to light and accommodation. Visual cormier are full to confrontation throughout. Extraocular movement is intact no nystagmus is noted. Facial sensation is normal to touch throughout. The facial strength is normal throughout. Hearing is normal bilaterally to hand rub. Tongue is midline and moved [id number] without any difficulty. No dysarthria is noted. Shoulder shrug is normal bilaterally. Motor: The strength is 5 over 5 throughout. Normal tone and bulk. Cerebellum: Normal finger to nose heel to riggs bilaterally. Sensation: Sensation is normal to touch throughout. Reflexes (right/left): 2+ throughout. Plantars are downgoing bilaterally. SOME OF THE WORK-UP DURING THIS HOSPITAL VISIT CONSISTED OF: CT of the head is reported as degenerative and nonspecific white matter changes most typical of remote ischemia. If concern for acute ischemia correlate with MRI as clinically warranted. Ammonia is 15. TSH is 2.36, vitamin B12 749, folate is 24.8. MR the brain is reported as no evidence of intracranial mass or acute/subacute infarct. Nonspecific white matter changes likely secondary to small vessel isc hemic disease. Routine EEG is normal. There is no focal slowing, perform discharges or seizure on the EEG. - Labs CBC & Chem 7: 06/02/22 08:05 06/04/22 07:52 Labs: Abnormal Lab Results - Last 24 Hours (Table) 06/04/22 Range/Units 07:52 Sodium 135 L (137-145) mmol/L Carbon Dioxide 19 L (22-30) mmol/L Glucose 109 H (74-99) mg/dL Total Bilirubin 1.4 H (0.2-1.3) mg/dL AST 64 H (17-59) U/L ALT 72 H (4-49) U/L Microbiology - Last 24 Hours (Table) 05/31/22 20:19 Gram Stain - Final Sputum Sputum Culture - Final Staphylococcus aureus Assessment and Plan Assessment: Altered mental status likely due to anoxic encephalopathy. Currently patient is oriented X3 and no focal deficits. Cardiopulmonary arrest and initially the patient was asystole then was V-tach. He received CPR and defibrillatorX2. Unknown downtime. As a result he required to be intubated in the field Acute STEMI with 100% occluded left circumflex artery status post stenting 05/31/2022 Mild elevated LFTs (AST and LFT) likely reactive from anoxia to organ---slightly trending down Positive for methamphetamine use Plan: I recommend a neuropsych evaluation/detailed cognitive testing as an outpatient if there continues to be a concern for his memory loss. Continue neuro checks Cardiology is on board We'll defer the rest of the medical management to the primary team. Otherwise no additional neurological workup is needed. We'll sign off. Please reconsult if needed. Time with Patient: Less than 30
--- NOTE | 2022-06-04 13:31 | P.PN ---
Subjective Progress Note Date: 06/04/22 This is a 61-year-old male who presented to the emergency room after he was found to be in cardiac arrest at home. Patient arrived to the emergency room intubated on mechanical ventilation. He underwent cardiac catheterization with Dr. Perez and had PCI to the mid circumflex. Patient is on dual antiplatelet therapy of Brilinta and aspirin. He is doing well with no complaints of chest pain or increased shortness of breath. Patient states he is ready to go home. Patient did have a sputum culture which was positive for Staphylococcus aureus. He does have a mild cough but no other comp laints. He has been cleared by neurology to be discharged home. He is cleared from a cardiac standpoint and will follow-up on outpatient basis. Objective - Vital Signs Vital signs: Vital Signs Temp 98.3 F 06/04/22 07:41 Pulse 88 06/04/22 11:07 Resp 16 06/04/22 11:07 BP 102/73 06/04/22 11:07 Pulse Ox 94 L 06/04/22 11:07 FiO2 30 06/01/22 13:30 Intake & Output 06/03/22 06/04/22 06/04/22 18:59 06:59 18:59 Intake Total 776 Balance 776 Intake: Oral 776 Other: Voiding Method Indwelling Catheter Toilet Toilet Urinal Urinal # Voids 1 1 ABP, PAP, CO, CI - Last Documented Arterial Blood Pressure 96/45 - Exam VITAL SIGNS: Reviewed. GENERAL: Well-developed in no acute distress. NECK: Supple. No JVD or thyromegaly LUNGS: Respirations even and unlabored. Lungs essentially clear to auscultation bilaterally. HEART: Regular rate and rhythm. S1 and S2 heard. EXTREMITIES: Normal range of motion. No clubbing or cyanosis. Peripheral pulses intact. No lower extremity edema - Labs CBC & Chem 7: 06/02/22 08:05 06/04/22 07:52 Labs: Abnormal Lab Results - Last 24 Hours (Table) 06/04/22 Range/Units 07:52 Sodium 135 L (137-145) mmol/L Carbon Dioxide 19 L (22-30) mmol/L Glucose 109 H (74-99) mg/dL Total Bilirubin 1.4 H (0.2-1.3) mg/dL AST 64 H (17-59) U/L ALT 72 H (4-49) U/L Microbiology - Last 24 Hours (Table) 05/31/22 20:19 Gram Stain - Final Sputum Sputum Culture - Final Staphylococcus aureus Assessment and Plan Assessment: STEMI, s/p PCI to circumflex Cardiac arrest, prior to hospital, initially asystole and then ventricular tachycardia, s/p defibrillation x 2 Altered mental status/cognitive impairment Memory impairment Toxicology screen positive for methamphetamines Plan: Continue with all current cardiac medications Continue with dual antiplatelet therapy Continue to ambulate as tolerated Patient is cleared to be discharged to follow-up outpatient basis. Further recommendations based on clinical course The above impression and plan of care have been discussed and directed by the signing physician. Khloe Snell, nurse practitioner, acting as scribe for sign ing physician.
--- NOTE | 2022-06-04 14:03 | P.PN ---
Subjective Progress Note Date: 06/04/22 Principal diagnosis: Cardiac arrest. This is a 61-year-old male patient with no significant past medical history. No home prescribed medications. Yesterday the patient was up in the shower was not feeling well and laid down on the bed and he stopped breathing and his judy ot feel heartbeat she did start CPR. When EMS arrived the patient was found to be in asystole they continued CPR gave epinephrine and the patient went into V. tach and they did 2 defibrillations and started 150 of amiodarone. He was intubated in the field. Subsequently brought here to the emergency room. EKG showed evidence of subendocardial injury. Troponin 4.6. Peaked at 27.3. Acute ST segment elevation myocardial infarction. He was taken to the cardiac Construction [facility] and had undergone stenting of the 100% occluded mid circumflex artery. He remained intubated on mechanical ventilator. He is seen this morning in the ICU in consultation. Current vent settings are scarred control mode at a rate of 20, tidal out of 500, FiO2 30% and a PEEP of 5. Morning blood gases revealed a PaO2 of 128, pCO2 35, pH 7.45 on 40% FiO2. He is currently sedated on propofol at 45 mg/kg per minute. He initially required norepinephrine that has since been weaned off. He has normal saline at 50 MLS per hour. Chest x-ray reveals no evidence of focal consolidation or pneumothorax. There is some blunting of the costophrenic angle on the left. Scattered airspace opacities. Sputum culture pending. He is continued on cefazolin. White count 11.4. Hemoglobin 13.4. Sodium 138. Potassium 3.5. Chloride 109. Bicarb 23. BUN 18. Creatinine 0.87. Glucose 108. AST 230. ALT 151. Urine drug screen positive for methamphetamines. Echocardiogram did reveal preserved left ventricular systolic function with ejection fraction 50-55%. No significant valvular abnormalities. The patient is seen today 06/02/2022 in follow-up in the intensive care unit. He was successfully extubated yesterday. He is currently awake and alert in no acute distress. He is maintaining good O2 saturations in the 90s on room air. No IV fluids. He has had some periods of confusion but otherwise doing quite well. He is appropriate today. X-ray shows mild interval improvement in the bilateral areas of infiltrate. Sputum culture pending. White count 7.9. Hemoglobin 15.0. Sodium 134. Potassium 4.1. Chloride 110. BUN 11. Creatinine 0.77. GFR greater than 90. Blood glucose 85. AST 192. ALT 124. He remains on Brilinta, aspirin, statins and beta blockers. Heparin for DVT prophylaxis. Progress note dated 06/03/2022. The patient is resting comfortably in room 361. He is on room air. He's not re ceiving any IV fluids. No word on possible discharge. Clinically, he looks well. No new labs today other than a glucose of 107. Brain CT from yesterday shows degenerative and nonspecific white matter changes most typical of remote ischemia. Progress note dated 06/04/2022. 61-year-old male, again seen in room 361. The patient is not on any supplemental oxygen, or not receiving any IV fluids. He is anxious to be discharged. His only complaint today is that of a cough. We will add some [place] to his regimen. Current laboratory data includes a sodium 135, potassium 4.2, chlorides 105, 19, anion gap 11, BUN 18, and creatinine 0.91. Sputum sample showed evidence of staph aureus. It is oxacillin sensitive staph aureus. Objective - Vital Signs Vital signs: Vital Signs Temp 98.3 F 06/04/22 07:41 Pulse 88 06/04/22 13:02 Resp 16 06/04/22 13:02 BP 102/73 06/04/22 11:07 Pulse Ox 94 L 06/04/22 11:07 FiO2 30 06/01/22 13:30 Intake & Output 06/03/22 06/04/22 06/04/22 18:59 06:59 18:59 Intake Total 776 Balance 776 Intake: Oral 776 Other: Voiding Method Indwelling Catheter Toilet Toilet Urinal Urinal # Voids 1 1 ABP, PAP, CO, CI - Last Documented Arterial Blood Pressure 96/45 - Exam No acute distress, oriented 3. Currently on room air. HEENT examination is grossly unremarkable. Neck supple. Full range of motion. No adenopathy thyromegaly or neck vein distention. Cardiovascular examination reveals regular rhythm rate. S1-S2 normal. No S3 or S4. No discernible murmur noted. Heart rate 88 bpm. Lungs reveal clear breath sounds. Breath sounds are equal bilaterally. No adventitious lung sounds including wheezes rhonchi or crackles. Room air saturation is 94 %. Abdomen soft bowel sounds are heard. No masses or tenderness. Extremities are intact. No cyanosis clubbing or edema. Skin is without rash or lesion. Neurologic examination is brief but nonfocal. - Labs CBC & Chem 7: 06/02/22 08:05 06/04/22 07:52 Labs: Abnormal Lab Results - Last 24 Hours (Table) 06/04/22 Range/Units 07:52 Sodium 135 L (137-145) mmol/L Carbon Dioxide 19 L (22-30) mmol/L Glucose 109 H (74-99) mg/dL Total Bilirubin 1.4 H (0.2-1.3) mg/dL AST 64 H (17-59) U/L ALT 72 H (4-49) U/L Microbiology - Last 24 Hours (Table) 05/31/22 20:19 Gram Stain - Final Sputum Sputum Culture - Final Staphylococcus aureus Assessment and Plan Assessment: Cardiopulmonary arrest, status post CPR, status post intubation, with successful extubation on 06/01/2022. Acute ST segment elevation myocardial infarction, status post stenting of the left circumflex artery, 05/31/2022. 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 Sputum sample positive for oxacillin sensitive staph aureus, which may relate to a mild tracheobronchitis/bronchopneumonia. Urine drug screen positive for methamphetamines. Plan: Plan dated 06/03/2022. The patient's doing well. The patient will be discharged soon. The patient's currently on room air, and not receiving any IV fluids. He continues on beta blockers, statins, aspirin, and Brilinta. Labs, x-rays, and medications are reviewed. Prognosis is guarded. No active respiratory issues at this time. Plan dated 06/04/2022. We did ask him Karion Bharath to the patient's regimen, for his cough. His sputum was positive for oxacillin sensitive staph aureus. I will repeat a chest x-ray today, and check a pro-calcitonin level. Additional recommendations and suggestions are forthcoming. Labs, x-rays, and medications are reviewed. The patient's hoping to be discharged soon. He's not on any supplemental oxygen, or IV fluids. Time with Patient: Less than 30
[2022-06-04] MEDS ORDERED: AMOXIC-POT CLAV 875-125MG 1 EACH TAB PO SCH (21:00)
[2022-06-04] MEDS ORDERED: MELATONIN 5 MG TABLET PO SCH (21:00)
--- NOTE | 2022-06-06 14:23 | P.DS ---
Providers Date of admission: 05/31/22 14:55 Expected date of discharge: 06/04/22 Attending physician: Bassem Owen MD Consults: 05/31/22 15:45 Consult Physician Routine Consulting Provider: Justino Monroe Consult Reason/Comments: Vent Management Do you want consulting provider notified?: Already Contacted 05/31/22 16:15 Consult Physician Stat Consulting Provider: Merissa Perez Consult Reason/Comments: STEMI Do you want consulting provider notified?: Already Contacted 05/31/22 16:16 Consult Physician Routine Consulting Provider: Merissa Perez Consult Reason/Comments: STEMI Do you want consulting provider notified?: Already Contacted Consult Physician Stat Consulting Provider: Merissa Perez Consult Reason/Comments: STEMI Do you want consulting provider notified?: Already Contacted 06/02/22 07:55 Consult Physician Routine Consulting Provider: Jb Monroe Consult Reason/Comments: milld anoxic encephalopathy Do you want consulting provider notified?: Yes Primary care physician: Roya Adams [facility] Course: Final Diagnosis -Acute ST elevation myocardial infarction, patient is status post cardiac catheterization with stenting of 100% occlusion to the circumflex -Cardio pulmonary/ventricular tachycardia secondary to myocardial infarction -Acute respiratory failure secondary to cardiopulmonary arrest -Positive drug screen for methamphetamines -GI prophylaxis -DVT prophylaxis -Full code Discharge disposition Patient is being discharged in a stable condition with guarded prognosis to home. Patient will follow-up with Dr. Adams in the outpatient setting upon discharge. Patient is to follow up outpatient with cardiology and neurology. Patient will be continued on current cardiac medications with close outpatient follow-up. Patient will also continue short course of oral doxycycline 100 mg twice daily for the next one week to complete the course. Total time taken is greater than 35 minutes. Hospital course This is an 61-year-old male who was recently admitted with cardiac arrest after having some chest pain and resuscitated immediately underwent intubation and cardiac catheterization found to have 100% occlusion of the mid circumflex with successful stenting and was being closely monitored. Patient was evaluated by cardiology and has been cleared for discharge with close outpatient follow-up. Patient during intubation also had some sputum cultures that showed Staphylococcus aureus with sensitivities and will be given oral doxycycline for a one-week course. Patient encouraged to follow-up with primary care provider along with cardiology and neurology in the outpatient setting. Neurology testing for EEG and MRI were negative for any acute process. Neurology recommended outpatient follow-up with a neurologist for further testing. Currently no reports of chest pain, shortness of breath, or palpitations. Patient is afebrile. No reports of nausea or vomiting and patient is tolerating diet. Patient will be discharged home today. Guarded prognosis. On exam vital signs are stable. Cardio S1, S2 are muffled. Respiratory system shows diminished breath sounds at the bases with no wheezing or rhonchi noted. Abdomen is soft and nontender. Nervous system shows no focal deficits. Please refer to medication reconciliation sheet for a list of medications. The impression and plan of care has been dictated by Jossie Maravilla, Nurse Practitioner as directed. Dr. Danie MD I have performed a history and examination and MDM of this patient, discussed the same with the dictator, and agree with the dictator's assessment and plan as written ,documented as a scribe. Based on total visit time, I have performed more than 50% of the visit. Patient Condition at Discharge: Fair Plan - Discharge Summary Discharge Rx Participant: No New Discharge Prescriptions: New Losartan [Cozaar] 12.5 mg PO HS 30 Days #15 tab Atorvastatin [Lipitor] 80 mg PO HS #30 tab Nitroglycerin Sl Tabs [Nitrostat] 0.4 mg SUBLINGUAL Q5M PRN #30 tab PRN Reason: Chest Pain Benzonatate [Tessalon Perles] 200 mg PO TID PRN #30 cap PRN Reason: Cough Acetaminophen Tab [Tylenol] 650 mg PO Q4HR PRN tab PRN Reason: Fever And/ Or Pain Doxycycline [Vibramycin] 100 mg PO BID 7 Days #14 cap Ticagrelor [Brilinta] 90 mg PO BID #60 tab Metoprolol Tartrate [Lopressor] 12.5 mg PO TID 30 Days #90 tab Famotidine [Pepcid] 20 mg PO BID 15 Days #30 tablet guaiFENesin-DM 100-10MG/5ML [Robitussin DM] 10 ml PO Q6HR PRN #120 ml PRN Reason: Cough Continue Aspirin EC [Ecotrin Low Dose] 81 mg PO DAILY Vitamin C(Unknown Dose) 1 tab PO DAILY Vitamin D3(Unknown Dose) 1 tab PO DAILY Multivit-Min/FA/Lycopen/Lutein [Centrum Silver Tablet] 1 tab PO DAILY Vitamin B Complex 1 cap PO DAILY Discharge Medication List Aspirin EC [Ecotrin Low Dose] 81 mg PO DAILY 05/31/22 [History] Multivit-Min/FA/Lycopen/Lutein [Centrum Silver Tablet] 1 tab PO DAILY 05/31/22 [History] Vitamin B Complex 1 cap PO DAILY 05/31/22 [History] Vitamin C(Unknown Dose) 1 tab PO DAILY 05/31/22 [History] Vitamin D3(Unknown Dose) 1 tab PO DAILY 05/31/22 [History] Ticagrelor [Brilinta] 90 mg PO BID #60 tab 06/03/22 [Rx] Acetaminophen Tab [Tylenol] 650 mg PO Q4HR PRN tab 06/04/22 [Rx] Atorvastatin [Lipitor] 80 mg PO HS #30 tab 06/04/22 [Rx] Benzonatate [Tessalon Perles] 200 mg PO TID PRN #30 cap 06/04/22 [Rx] Doxycycline [Vibramycin] 100 mg PO BID 7 Days #14 cap 06/04/22 [Rx] Famotidine [Pepcid] 20 mg PO BID 15 Days #30 tablet 06/04/22 [Rx] Losartan [Cozaar] 12.5 mg PO HS 30 Days #15 tab 06/04/22 [Rx] Metoprolol Tartrate [Lopressor] 12.5 mg PO TID 30 Days #90 tab 06/04/22 [Rx] Nitroglycerin Sl Tabs [Nitrostat] 0.4 mg SUBLINGUAL Q5M PRN #30 tab 06/04/22 [Rx] guaiFENesin-DM 100-10MG/5ML [Robitussin DM] 10 ml PO Q6HR PRN #120 ml 06/04/22 [Rx] Follow up Appointment(s)/Referral(s): Merissa Perez MD [STAFF PHYSICIAN] - 1 Week (Office to call patient with appointment.) Dev Islas MD [Medical Doctor] - 1 Week (Office closed--please call Monday to schedule follow up appointment.) None,Stated [REFERRING] - 1-2 days (Please schedule appointment with a PCP KATTY.) Patient Instructions/Handouts: Heart Attack (DC), Heart Catheterization (DC) Activity/Diet/Wound Care/Special Instructions: Brilinta covered, copay $25 activity limited until follow up follow up with pcp on discharge follow up cardiology in one week continue taking medications as prescribed Complete antibiotics continue heart healthy diet follow up neurology outpatient Discharge Disposition: HOME SELF-CARE
== END 2022-06-04 14:01 | disposition home or self-care (01) | DRG 246 ==
LOC: EC 14:38 → 2SICU 14:55 → 3SCARD 06-02 13:03
PROVIDERS: ADMIT Internal Medicine; ATTEND Internal Medicine
PROC: B2111ZZ Fluoroscopy of Multiple Coronary Arteries using Low Osmolar Contrast (ICD-10-PCS; 2022-05-31)
PROC: 3E033XZ Introduction of Vasopressor into Peripheral Vein, Percutaneous Approach (ICD-10-PCS; 2022-05-31)
PROC: 5A1935Z Respiratory Ventilation, Less than 24 Consecutive Hours (ICD-10-PCS; 2022-05-31)
PROC: 027034Z Dilation of Coronary Artery, One Artery with Drug-eluting Intraluminal Device, Percutaneous Approach (ICD-10-PCS; principal; 2022-05-31 15:02)
PROC: 4A023N7 Measurement of Cardiac Sampling and Pressure, Left Heart, Percutaneous Approach (ICD-10-PCS; 2022-05-31 15:02)
DX: I21.19 ST elevation (STEMI) myocardial infarction involving other coronary artery of inferior wall (principal); J15.20 Pneumonia due to staphylococcus, unspecified; J96.01 Acute respiratory failure with hypoxia; G93.1 Anoxic brain damage, not elsewhere classified; I47.20 Ventricular tachycardia, unspecified; I27.20 Pulmonary hypertension, unspecified; I08.1 Rheumatic disorders of both mitral and tricuspid valves; F15.90 Other stimulant use, unspecified, uncomplicated; R41.89 Other symptoms and signs involving cognitive functions and awareness; J40 Bronchitis, not specified as acute or chronic; Z28.310 Unvaccinated for COVID-19; Z86.74 Personal history of sudden cardiac arrest; Z82.49 Family history of ischemic heart disease and other diseases of the circulatory system; Z79.82 Long term (current) use of aspirin
CPT/HCPCS: 36430; 70450; 70551; 71045; 72020; 80053; 80306; 81001; 82140; 82607; 82746; 82805; 83036; 83735; 84132; 84145; 84443; 84484; 85025; 85610; 85730; 87070; 87077; 87186; 87205; 93005; 93306; 93458; 94002; 94003; 94760; 95816; 96374; 99291

== ENCOUNTER → 2022-06-24 | Outpatient (CLI) | payer OTHER ==
[2022-06-24 19:02] LABS: T4, Free (Free Thyroxine) 1.32 ng/dL (0.800-1.800)
== END | disposition home or self-care (01) ==
LOC: LABWHC1 11:40
PROVIDERS: ATTEND Psychiatry & Neurology Neurology
DX: I69.911 Memory deficit following unspecified cerebrovascular disease (principal); R53.83 Other fatigue
CPT/HCPCS: 36415; 82607; 84439; 84443; 84481

== ENCOUNTER → 2023-03-07 | Outpatient (CLI) | payer OTHER ==
[2023-03-07 15:38] LABS: HCT 44.3 % (39.6-50.0); HGB 14.9 d/dL (13.0-17.0); MCH 30.2 pg (27.0-32.0); MCHC 33.6 d/dL (32.0-37.0); MCV 89.9 FL (80.0-97.0); Mean Platelet Volume 8.7 FL (9.5-12.2); NRBC Per 100 WBC 0 X 10*3/uL (0.00-0.01); Platelet Count 283 X 10*3/uL (140-440); RBC 4.93 X 10*6/uL (4.40-5.60); RDW 12.9 % (11.5-14.5); WBC 7.36 X 10*3/uL (4.50-10.00)
[2023-03-07 15:48] LABS: Blood Urea Nitrogen 7.5 mg/dL (9.0-27.0); Carbon Dioxide 28.2 mmol/L (21.6-31.8); Chloride 100 mmol/L (96-109); Potassium 4.5 mmol/L (3.5-5.5); Sodium 137 mmol/L (135-145)
== END | disposition home or self-care (01) ==
LOC: LABPAT 12:11
PROVIDERS: ATTEND Internal Medicine Interventional Cardiology
DX: Z01.812 Encounter for preprocedural laboratory examination (principal); I25.10 Atherosclerotic heart disease of native coronary artery without angina pectoris
CPT/HCPCS: 80051; 82565; 84520; 85027